=== PATIENT | male | born 1955 | race American Indian/Alaskan Native ===

== ENCOUNTER 2016-12-29 15:28 | Outpatient (CLI) | payer OTHER ==
--- NOTE | 2016-12-29 16:02 | XRay Report ---
Chest 2 views: History: Screening for tuberculosis. Findings: Normal cardiomediastinal silhouette. Trachea is midline. Tip of large bore right venous catheter in right atrium. No consolidation, pneumothorax or pleural effusion. Impression: No acute cardiopulmonary findings.
== END 2016-12-29 15:29 | disposition home or self-care (01) ==
LOC: XRAY 15:28
PROVIDERS: ATTEND Internal Medicine Nephrology
DX: Z11.1 Encounter for screening for respiratory tuberculosis (principal)
CPT/HCPCS: 71020

== ENCOUNTER 2017-01-07 08:09 | Day surgery (SDC) | payer OTHER ==
[~2017-01-07 08:09] MED LIST: ANCEF/STERILE WATER 2 GM/20 ML 2 GM/20 ML SYRINGE IV NR; DECADRON ONE; DIPRIVAN 10 MG/ML IV ONE; NACL 0.9% 1000 ML 1,000 ML IV SCH; PEPCID PO NR; SUBLIMAZE ONE; VERSED IV NR; XYLOCAINE MPF 2% ONE; ZOFRAN ONE
[2017-01-07] MEDS ORDERED: MARCAINE 0.25% INFILTRATI ONE ×3 (08:49→10:23)
[2017-01-07] MEDS ORDERED: PAPAVERINE ONE (08:49)
[2017-01-07] MEDS ORDERED: HEPARIN 10,000 UNITS/10 ML ONE (08:49)
[2017-01-07] MEDS ORDERED: NACL 0.9% 500 ML 500 ML ONE (08:50)
[2017-01-07] MEDS ORDERED: XYLOCAINE 1%/ EPI 1:100,000 INFILTRATI ONE (08:50)
[2017-01-07] MEDS ORDERED: SODIUM BICARBONATE ONE (08:50)
[2017-01-07] MEDS ORDERED: PROTAMINE SULFATE ONE (08:50)
--- NOTE | 2017-01-07 09:12 | Anesthesia Day of Surgery ---
Anesthesia Day of Surgery - Day of Surgery Patient Examined: Yes Patient H&P Reviewed: Yes Patient is NPO: Yes Beta Blockers: Yes (took 50 mg Atenolol in preop)
--- NOTE | 2017-01-07 09:14 | Anesthesia Consultation ---
Anesthesia Consult and Med Hx Date of service: 01/07/17 - Airway Anesthetic Teeth Evaluation: Edentulous ROM Head & Neck: Adequate Mental/Hyoid Distance: Adequate Mallampati Class: Class II Intubation Access Assessment: Probably Good - Pulmonary Exam CTA: Yes - Cardiac Exam Cardiac Exam: RRR - Pre-Operative Health Status ASA Pre-Surgery Classification: ASA3 Proposed Anesthetic Plan: General - Pulmonary Hx Smoking: No - Cardiovascular System Hx Hypertension: Yes - Endocrine Hx End Stage Renal Disease: Yes Hx Non-Insulin Dependent Diabetes: Yes - Additional Comments Anesthesia Medical History Comments: High Cholesterol
[2017-01-07] MEDS ORDERED: NACL 0.9% IR ONE (10:23)
[2017-01-07] MEDS ORDERED: HEPARIN 10,000 UNITS/10 ML 2,000 UNIT in NACL 0.9% 500 ML 500 ML IR ONE (10:23)
[2017-01-07] MEDS ORDERED: PAPAVERINE IV ONE (10:23)
[2017-01-07] MEDS ORDERED: ePHEDrine SULFATE ONE (10:33)
--- NOTE | 2017-01-07 11:52 | Operative Report ---
Operative Report Operative Report: Preoperative diagnosis: End-stage renal disease/dialysis dependent renal failure. Postop diagnosis: The same Procedure: Left radiocephalic arteriovenous fistula creation. Surgeon: Gerald Hare MD., RPVI Loader Technician: none Anesthesia: Local with IV sedation EBL: 30 mL IV fluids: 300 mL Findings: Adequate size left radial artery, adequate size left cephalic vein, palpable thrill in the vein after the anastomosis. Disposition: To recovery Indications end-stage renal disease. Procedure in details: Patient was brought to the operating room and laid on the operating room table in supine position. After LMA anesthesia was achieved patient left arm was prepped and draped in the usual sterile fashion. The longitudinal incision between the palpated radial artery and imaged cephalic vein made using #15 blade. Subcutaneous tissue was divided with Bovie electrocautery. The left cephalic vein was dissected free. The cephalic vein was disconnected from the distal cephalic vein and controlled was bulldog. It was heparinized with heparinized saline and dilated well. The left radial artery was then dissected and encircled with Vesseloops proximally and distally. Patient received 2000 units of intravenous heparin. After 3 minutes the artery was occluded with vessel clamps and arteriotomy was made using #11 blade and Sainz scissors. The distal end of the vein was spatulated using Sainz scissors. The anastomosis was created using a running 7-0 Prolene running suture using BV1 needle. Prior to completion the artery was flushed proximally and distally and good forward and back bleeding was seen. Then anastomosis was completed the clamps were removed. The hemostasis was excellent. The strong thrill was appreciated over the cephalic vein. Once it was ascertained that hemostasis was good the skin was closed using 3-0 vicryl and 4-0 monocryl sutures. Patient tolerated procedure well. He was awakened and taken to the recovery room. At the end of the case 1/4 percent Marcaine when infiltrated into the incision for postoperative pain control. All sponge and needle counts were correct.
--- NOTE | 2017-01-07 11:55 | Short Stay Summary ---
Short Stay Documentation - History H&P: obtained from office - Allergies and Medications Current Medications: Allergies No Known Allergies Allergy (Unverified 12/29/16 15:29) Home Medications Medication Instructions Recorded Confirmed Last Taken Type Atenolol [Tenormin] 50 mg PO DAILY 01/07/17 01/07/17 01/07/17 09:30 History Calcium Acetate 667 mg PO TID 01/07/17 01/07/17 01/06/17 17:00 History NIFEdipine [Nifedipine ER] 90 mg PO DAILY 01/07/17 01/07/17 01/06/17 09:00 History Sodium Bicarbonate [Sodium 10 gm PO DAILY 01/07/17 01/07/17 01/06/17 17:00 History Bicarbonate] glipiZIDE [Glucotrol] 5 mg PO DAILY 01/07/17 01/07/17 01/06/17 09:00 History Active Medications Famotidine (Pepcid) 20 mg PO PREOP NR Stop: 01/07/17 23:55 Last Admin: 01/07/17 09:30 Dose: 20 mg Cefazolin Sodium (Ancef/Sterile Water 2 Gm/20 Ml) 2 gm in 20 mls @ 80 mls/hr IV PREOP NR PRN Reason: Protocol Stop: 01/07/17 23:59 Sodium Chloride (Nacl 0.9% 1000 Ml) 1,000 mls @ 42 mls/hr IV DIRECT SANTA Last Admin: 01/07/17 09:30 Dose: 42 mls/hr Midazolam HCl (Versed) 2 mg IV PREOP NR Stop: 01/07/17 23:59 Last Admin: 01/07/17 09:30 Dose: 2 mg - Brief post op/procedure progress note Procedure: Preoperative diagnosis: End-stage renal disease/dialysis dependent renal failure. Postop diagnosis: The same Procedure: Left radiocephalic arteriovenous fistula creation. Surgeon: Gerald Hare MD., RPVI Block Machine Operator: none Anesthesia: Local with IV sedation EBL: 30 mL IV fluids: 300 mL Findings: Adequate size left radial artery, adequate size left cephalic vein, palpable thrill in the vein after the anastomosis. Disposition: To recovery - Disposition Condition at discharge: Good Disposition: DISCHARGED TO HOME OR SELFCARE Short Stay Discharge Plan Activity: advance as tolerated, other (all heavy lifting with left arm for 4-6 weeks) Diet: renal Wound: remove dressing (in 2 days and then keep it open to air. If mild oozing over with gauze) Additional Instructions: Follow-up with Dr. Hare in 2 weeks for suture removing and fistula evaluation. Follow up with: PACO BENDER MD [Primary Care Provider] - 7 Days
[2017-01-07 12:50] VITALS: BP 170/90
--- NOTE | 2017-01-07 16:31 | Post Anesthesia Evaluation ---
- Post Anesthesia Evaluation Patient Participated: Yes Airway Patent: Yes Stable Respiratory Function: Yes Nausea/Vomiting: No Temp > 96.8F: Yes Pain Manageable: Yes Adequeate Hydration: Yes Anesthesia Complications: No
== END 2017-01-07 13:38 | disposition home or self-care (01) ==
LOC: OR 08:09
PROVIDERS: ATTEND Surgery Vascular Surgery
DX: E11.22 Type 2 diabetes mellitus with diabetic chronic kidney disease (principal); I12.0 Hypertensive chronic kidney disease with stage 5 chronic kidney disease or end stage renal disease; N18.6 End stage renal disease; D64.9 Anemia, unspecified; N25.81 Secondary hyperparathyroidism of renal origin; Z79.899 Other long term (current) drug therapy; Z79.84 Long term (current) use of oral hypoglycemic drugs
CPT/HCPCS: 36415; 36821; 82962; 84132; J0690; J1644; J2250; J2405; J2440; J2704; J3010; J7030; J7040; J1100; J2720

== ENCOUNTER 2017-02-04 07:52 | Day surgery (SDC) | payer OTHER ==
[~2017-02-04 07:52] MED LIST changes: -DECADRON ONE; -DIPRIVAN 10 MG/ML IV ONE; -PEPCID PO NR; -SUBLIMAZE ONE; -VERSED IV NR; -XYLOCAINE MPF 2% ONE; -ZOFRAN ONE
[2017-02-04] MEDS ORDERED: MARCAINE 0.5% INFILTRATI ONE ×2 (08:52→12:22)
[2017-02-04] MEDS ORDERED: HEPARIN 10,000 UNITS/10 ML ONE ×2 (08:52→11:23)
[2017-02-04] MEDS ORDERED: PAPAVERINE ONE (08:53)
--- NOTE | 2017-02-04 09:08 | Anesthesia Day of Surgery ---
Anesthesia Day of Surgery - Day of Surgery Patient Examined: Yes Patient H&P Reviewed: Yes Patient is NPO: Yes Beta Blockers: Yes (took atenolol 02/04/17)
--- NOTE | 2017-02-04 09:08 | Anesthesia Consultation ---
Anesthesia Consult and Med Hx Date of service: 02/04/17 - Airway Anesthetic Teeth Evaluation: Edentulous ROM Head & Neck: Adequate Mental/Hyoid Distance: Adequate Mallampati Class: Class III Intubation Access Assessment: Probably Good - Pulmonary Exam CTA: Yes - Cardiac Exam Cardiac Exam: RRR - Pre-Operative Health Status ASA Pre-Surgery Classification: ASA3 Proposed Anesthetic Plan: General - Pulmonary Hx Smoking: No Hx Sleep Apnea: No - Cardiovascular System Hx Hypertension: Yes (FOR 5+ YRS) - Central Nervous System Hx Psychiatric Problems: No - Endocrine Hx End Stage Renal Disease: Yes (TTS) Hx Non-Insulin Dependent Diabetes: Yes - Hematic Hx Anemia: Yes - Other Systems Hx Cancer: No
[2017-02-04] MEDS ORDERED: ZOFRAN IV PRN (09:30)
[2017-02-04] MEDS ORDERED: NORCO 5/325 PO PRN (09:30)
[2017-02-04] MEDS ORDERED: DILAUDID IV PRN (09:30)
[2017-02-04] MEDS ORDERED: PEPCID IV NR (09:30)
--- NOTE | 2017-02-04 10:14 | Admit Criteria Form ---
<GETACHEWLATRICE ABUNDIO BLACK - Last Filed: 02/04/17 10:00> Admission Criteria Documentation: AMBULATORY SURGERY EXCEPTION CRITERIA Ambulatory Surgery Exception Criteria ( Place 'X' for any and all applicable criteria): Surgery or procedure performed on ambulatory basis may require inpatient stay for[A] ANY ONE of the following(1)(2)(3)(4)(5)(6)(7)(8)(9): [X] I. A preoperative situation, condition, or finding that warrants inpatient stay as indicated by ANY ONE of the following: [] a) Inpatient care needed because of severity of a disease or condition rather than the surgery (eg, severe cardiac or respiratory disease, severe infection) (15) (16 ) (17) (18) [] b) Emergent procedure (eg, angioplasty for acute ischemia)(19) [] c) Complex surgical approach or situation as indicated by ANY ONE of the following(3): [] i) Open approach needed instead of usual endoscopic, transcatheter, or other less invasive procedure [] ii) Difficult approach because of previous operation [] iii) Airway monitoring required after open neck procedures(20)(21) [] iv) Large mass requiring unusually extensive dissection [] v) Additional complicating feature requiring inpatient care (eg, drain management)(22(23): [X] d) Major surgery in a pt with high anesthetic risk as indicated by ANY ONE of the following (2)(3)(5)(7)(8): [X] i) ASA risk class III or higher (severe systemic disease impairing function) [D] [] ii) Advanced age (eg, older than 85 years)(14)(24) [] iii) Symptomatic heart failure(25) [] iv) Symptomatic asthma or COPD(8)(21) [] v) Morbid obesity with hemodynamic or respiratory problems(20)( 21)(26)(27) [] vi) Obstructive sleep apnea(20)(21) [] vii) Former premature infants who are younger than 60 weeks [] viii) High risk for severe postoperative abnormalities (eg, severe postoperative hypocalcemia after parathyroidectomy for severe hyperparathyroidism)(27)( 28) [] ix) Unstable angina(25) [] e) Drug-related risk requiring inpatient stay as indicated by ANY ONE of the following(5)(10)(14)(32)(33) [] i) Procedure requires discontinuing drugs or other therapy (eg , antiarrhythmic medication, antiseizure medication), which necessitates inpatient observation or treatment.(18)(31) [] ii) Major surgery and high risk drug use as indicated by ANY ONE of the following: [] 1) Active abuse of cocaine or similar drug [] 2) Monoamine oxidase inhibitor use [] 3) Other drug identified as posing risk [] f) Inadequate outpatient care situation as indicated by ANY ONE of the following(5)(10)(14)(32)(33) [] i) Patient lives remote from medical facility and procedure has urgent complication potential, and temporary nearby residence cannot be arranged [] ii) Patient will have postprocedure incapacitation and inadequate assistance at home, or alternative level of care cannot be arranged. [] iii) Patient will have long general anesthesia or procedure side effect resolution time, and competent person to stay with patient on first postoperative night at home or alternative level of care cannot be arranged. []iv) Other inadequate outpatient situation that cannot be handled by other means [] II. A perioperative event, condition, or finding that warrants inpatient stay as indicated by ANY ONE of the following (1)(2)(3): [] a) Inadequate physiologic recovery: cardiovascular, respiratory, or hemodynamic status not normal or near preoperative baseline(18) [] b) Hemodynamic instability [] c) Patient not alert with near normal or baseline mental status [] d) Temperature not normal or as expected and not appropriate for outpatient treatment of condition [] e) Ambulatory or appropriate activity level status not yet achieved post procedure [E](34)(35)(36) [] f) Operative site not appropriate (eg, unexpected or excessive drainage or bleeding) [] g) Postoperative effects not resolved or adequately managed (eg, significant pain or vomiting not appropriate for outpatient or next level of care)(10)(12) [] h) Complicating features requiring inpatient care as indicated by ANY ONE of the following(37): [] i) Severe complications of procedure (eg, bowel injury, airway compromise, vascular injury,severe hemorrhage) [] ii) Extensive (eg, dissection far beyond usual scope of procedure ) or prolonged (eg, 120 minutes beyond usual) surgery needed requiring inpatient postoperative care [] iii) Conversion to an open or complex procedure that requires inpatient care (eg, open vs laparoscopic cholecystectomy, abdominal vs vaginal hysterectomy)(38) [] iv) Comorbid condition or test result identified during or post procedure that requires inpatient care (7) [] v) Malignant hyperthermia(30) [] vi) Other complicating feature requiring inpatient care(22)(23) Inpatient stay may be needed until ALL of the following are present (1)(2)(3)(4) (5)(6)(10)(14)(33)(40): []a) Physiologic recovery: cardiovascular, respiratory, and hemodynamic status normal or near preoperative baseline []b) Hemodynamic stability []c) Patient alert, with near normal or baseline mental status []d) Temperature appropriate: patient afebrile or temperature appropriate for outpt treatment of condition []e) Activity level appropriate: ambulatory or appropriate activity level post procedure []f) Operative site appropriate as indicated by ALL of the following: []i) Site dry or with expected drainage []ii) Any blood noted is as expected for procedure. []g) Postoperative effects resolved or managed as indicated by ALL of the following: []i) Pain management appropriate for outpatient (or next level of) care(10) []ii) Minimal nausea and vomiting: if present, successfully treated with oral medication(12) []iii) Headache, dizziness, or drowsiness (if present) are mild. []h) Voiding status acceptable as indicated by ANY ONE of the following: []i) Voiding spontaneously []ii) No voiding but instructions given for follow-up in 6 to 8 hours []iii) Urinary catheter in place, and instructions given for follow-up []i) Complicating features requiring inpatient care manageable at a lower level of care(37) []j) Comorbid conditions manageable at a lower level of care(37) The original [facility] content created by [employer] has been revised. The portions of the content which have been revised are identified through the use of italic text or in bold, and [facility] [employer] has neither reviewed nor approved the modified material. All other unmodified content is copyright [facility] [employer]. Please see references footnoted in the original [facility] [employer] edition 2016 Admission Criteria Met: Yes <TJ MONIQUE - Last Filed: 02/06/17 07:59> Admission Criteria Met: No (patient was not admitted)
[2017-02-04] MEDS ORDERED: DILAUDID ONE (10:29)
[2017-02-04] MEDS ORDERED: DIPRIVAN 10 MG/ML IV ONE (10:29)
[2017-02-04] MEDS ORDERED: XYLOCAINE MPF 2% ONE (10:29)
[2017-02-04] MEDS ORDERED: NACL 0.9% 1000 ML IR ONE (11:00)
[2017-02-04] MEDS ORDERED: DECADRON ONE (11:23)
[2017-02-04] MEDS ORDERED: ZOFRAN ONE (11:23)
[2017-02-04] MEDS ORDERED: ePHEDrine SULFATE ONE (11:35)
[2017-02-04] MEDS ORDERED: HEPARIN 10,000 UNITS/10 ML 1,000 UNIT in NACL 0.9% 250ML 250 ML IR ONE (12:00)
--- NOTE | 2017-02-04 13:15 | Operative Report ---
Operative Report Operative Report: Preoperative diagnosis: End-stage renal disease/dialysis dependent renal failure. Postop diagnosis: The same Procedure: Left brachiocephalic arteriovenous fistula creation. Surgeon: Gerald Hare MD., RPVI Home Economics Expert: none Anesthesia: Gen. LMA EBL: 10 mL IV fluids: 100 mL Findings: Adequate size left brachial artery, adequate size left cephalic vein, excellent thrill in the vein after the anastomosis. Disposition: To recovery Indications end-stage renal disease. Procedure in details: Patient was brought to the operating room and laid on the operating room table in supine position. After LMA anesthesia was achieved patient left arm was prepped and draped in the usual sterile fashion. The transverse incision below antecubital fossa was made using #15 blade. Subcutaneous tissue was divided with Bovie electrocautery. The left cephalic and antecubital vein was dissected free. The antecubital vein was disconnected from the distal cephalic vein and controlled was bulldog. It was heparinized with heparinized saline and dilated well. The left brachial artery was then dissected and encircled with Vessel loops proximally and distally. Patient received 3000 units of intravenous heparin. After 3 minutes the artery was occluded with vessel clamps and arteriotomy was made using #11 blade and Sainz scissors. The distal end of the vein was spatulated using Sainz scissors. The anastomosis was created using a running 6-0 Prolene running suture using BV1 needle. Prior to completion the artery was flushed proximally and distally and good forward and back bleeding was seen. Then anastomosis was completed the clamps were removed. The hemostasis was excellent. The strong thrill was appreciated over the cephalic vein. Once it was ascertained that hemostasis was good the skin was closed using 3-0 vicryl and 4-0 monocryl sutures. Patient tolerated procedure well. He was awakened and taken to the recovery room. At the end of the case 1/4 percent Marcaine when infiltrated into the incision for postoperative pain control. All sponge and needle counts were correct.
--- NOTE | 2017-02-04 13:17 | Short Stay Summary ---
Short Stay Documentation - History H&P: obtained from office - Allergies and Medications Current Medications: Allergies No Known Allergies Allergy (Verified 02/04/17 08:30) Home Medications Medication Instructions Recorded Confirmed Last Taken Type Atenolol [Tenormin] 50 mg PO DAILY 01/07/17 02/04/17 02/04/17 History Calcium Acetate 667 mg PO TID 01/07/17 02/04/17 02/03/17 History NIFEdipine [Nifedipine ER] 90 mg PO DAILY 01/07/17 02/04/17 02/04/17 History Sodium Bicarbonate [Sodium 10 gm PO DAILY 01/07/17 02/04/17 02/03/17 History Bicarbonate] glipiZIDE [Glucotrol] 5 mg PO DAILY 01/07/17 02/04/17 02/03/17 History Active Medications Acetaminophen/Hydrocodone Bitart ([place] 5/325) 2 each PO ONCE PRN PRN Reason: Pain, Moderate (4-6) Stop: 02/04/17 19:00 Famotidine (Pepcid) 20 mg IV PREOP NR Stop: 02/04/17 19:00 Last Admin: 02/04/17 09:20 Dose: 20 mg Hydromorphone HCl (Dilaudid) 0.5 mg IV Q10MIN PRN PRN Reason: Pain , Severe (7-10) Stop: 02/04/17 14:00 Cefazolin Sodium (Ancef/Sterile Water 2 Gm/20 Ml) 2 gm in 20 mls @ 80 mls/hr IV PREOP NR PRN Reason: Protocol Stop: 02/04/17 23:59 Sodium Chloride (Nacl 0.9% 1000 Ml) 1,000 mls @ 42 mls/hr IV DIRECT SANTA Last Admin: 02/04/17 08:53 Dose: 42 mls/hr Ondansetron HCl (Zofran) 4 mg IV ONCE PRN PRN Reason: Nausea And Vomiting Stop: 02/04/17 18:00 - Brief post op/procedure progress note Procedure: Preoperative diagnosis: End-stage renal disease/dialysis dependent renal failure. Postop diagnosis: The same Procedure: Left brachiocephalic arteriovenous fistula creation. Surgeon: Gerald Hare MD., RPVI Hog Feeder: none Anesthesia: Gen. LMA EBL: 10 mL IV fluids: 100 mL Findings: Adequate size left brachial artery, adequate size left cephalic vein, excellent thrill in the vein after the anastomosis. Disposition: To recovery - Disposition Condition at discharge: Good Disposition: DISCHARGED TO HOME OR SELFCARE Short Stay Discharge Plan Activity: advance as tolerated, other (no heavy lifting for 6 weeks with left arm) Diet: renal Wound: open to air Additional Instructions: Follow-up with Dr. Hare in 1-2 weeks Follow up with: PACO BENDER MD [Primary Care Provider] - 7 Days
--- NOTE | 2017-02-04 14:00 | Post Anesthesia Evaluation ---
- Post Anesthesia Evaluation Patient Participated: Yes Airway Patent: Yes Stable Respiratory Function: Yes Nausea/Vomiting: No Temp > 96.8F: Yes Pain Manageable: Yes Adequeate Hydration: Yes Anesthesia Complications: No Block Receding Appropriately: Not Applicable Patient on Ventilator: No
--- NOTE | 2017-02-04 16:26 | Operative Report ---
Operative Report Operative Report: Date of procedure: 02/04/2017 Pre-operative diagnosis: Poor inflow in the right radial basilic AV fistula resulting in poor dialysis. Post-operative diagnosis: The same Procedure name(s): Revision of the right radial basilic fistula with brachiobasilic bypass using a 5 mm bovine graft. Surgeon: Gerald Hare MD, RPVI Investment Banking Associate: None Anesthesia: LMA/local Findings . Very small calcified brachial artery. Patent interposition bypass graft in the radial basilic fistula. Good thrill in the bypass graft. Good thrill in the fistula. Specimens: None EBL: 50 mL IV fluids: 750 mL Urine output: None Disposition: The recovery Indications: Poor functioning right brachiobasilic fistula with history of interposition bypass graft and multiple angioplasties. It was determined and the patient has poor inflow. Procedure: Patient was brought to the operating room laid on the table in supine position. After adequate sedation was achieved patient are was prepped and draped in usual sterile fashion. The incision was made through the previously made incision right above the antecubital fossa. The subcutaneous tissue was dissected with Bovie electrocautery. The brachial artery was found to be heavily scarred. It was dissected very carefully. The artery was found to be on the smaller caliber and heavily calcified. Through the same incision the skin was elevated over the fistula. In this area we encountered a bypass graft. It was also heavily scored. It was carefully dissected and encircled with vessel loop. Patient received 3000 units of intravenous heparin. The interposition bypass graft was occluded proximally and distally using vascular clamp. The arteriotomy on the graft was made using #11 blade and Sainz scissors. The 5 mm bovine graft was spatulated and distal anastomosis was created using 5-0 Prolene stitch and C1 needle. There was an excellent backbleeding from the graft. The graft was irrigated the clamp was applied right at the anastomosis. There was no bleeding seen. The arteriotomy was made on the brachial artery after artery was occluded with vascular clamps using #11 blade and Sainz scissors. Care was taken not to make arteriotomy to be to avoid potential steal syndrome. The graft was cut straight and anastomosis was created using 6-0 running Prolene stitch. Prior to completion of the anastomosis back bleeding was performed in the was good. Then anastomosis was completed. The clamps were removed. There was a good flow in the graft. No bleeding was seen. There was pulse in the brachial artery distal to the anastomosis. The hemostasis was examined and it was found to be satisfactorily. Because the patient was so thin the skin was closed using interrupted vertical mattress 3-0 nylon stitches. Patient tolerated procedure well. At the end of the case all instrument sponge and needle counts were correct.
--- NOTE | 2017-02-04 16:31 | Short Stay Summary ---
Short Stay Documentation - History H&P: obtained from office - Allergies and Medications Current Medications: Allergies No Known Allergies Allergy (Verified 02/04/17 08:30) Home Medications Medication Instructions Recorded Confirmed Last Taken Type Atenolol [Tenormin] 50 mg PO DAILY 01/07/17 02/04/17 02/04/17 History Calcium Acetate 667 mg PO TID 01/07/17 02/04/17 02/03/17 History NIFEdipine [Nifedipine ER] 90 mg PO DAILY 01/07/17 02/04/17 02/04/17 History Sodium Bicarbonate [Sodium 10 gm PO DAILY 01/07/17 02/04/17 02/03/17 History Bicarbonate] glipiZIDE [Glucotrol] 5 mg PO DAILY 01/07/17 02/04/17 02/03/17 History oxyCODONE /ACETAMINOPHEN [Percocet 1 - 2 tab PO Q4HR #40 tab 02/04/17 Unknown Rx 5/325] Active Medications Acetaminophen/Hydrocodone Bitart ([place] 5/325) 2 each PO ONCE PRN PRN Reason: Pain, Moderate (4-6) Stop: 02/04/17 19:00 Famotidine (Pepcid) 20 mg IV PREOP NR Stop: 02/04/17 19:00 Last Admin: 02/04/17 09:20 Dose: 20 mg Cefazolin Sodium (Ancef/Sterile Water 2 Gm/20 Ml) 2 gm in 20 mls @ 80 mls/hr IV PREOP NR PRN Reason: Protocol Stop: 02/04/17 23:59 Sodium Chloride (Nacl 0.9% 1000 Ml) 1,000 mls @ 42 mls/hr IV DIRECT SANTA Last Admin: 02/04/17 08:53 Dose: 42 mls/hr Ondansetron HCl (Zofran) 4 mg IV ONCE PRN PRN Reason: Nausea And Vomiting Stop: 02/04/17 18:00 - Brief post op/procedure progress note Procedure: Pre-operative diagnosis: Poor inflow in the right radial basilic AV fistula resulting in poor dialysis. Post-operative diagnosis: The same Procedure name(s): Revision of the right radial basilic fistula with brachiobasilic bypass using a 5 mm bovine graft. Surgeon: Gerald Hare MD, RPVI Supervisor Electron Tube Processing: None Anesthesia: LMA/local Findings . Very small calcified brachial artery. Patent interposition bypass graft in the radial basilic fistula. Good thrill in the bypass graft. Good thrill in the fistula. Specimens: None EBL: 50 mL IV fluids: 750 mL Urine output: None Disposition: The recovery Short Stay Discharge Plan Activity: advance as tolerated, other (no heavy lifting with right arm for 6 weeks.) Weight Bearing Status: Full Weight Bearing Diet: renal Wound: remove dressing (in 2 days) Additional Instructions: ACTIVITY ADVANCE TOLERATED NO HEAVY LIFTING FOR 6 WEEKS WITH LEFT ARM DIET RENAL WOUND OPEN TO AIR CALL DR HARE OFFICE FOR APPOINTMENT TIME Follow- up with Dr. Hare in 1-2 weeks Follow up with: PACO BENDER MD [Primary Care Provider] - 7 Days Forms: Outpatient Surgery DC Inst. Prescriptions: oxyCODONE /ACETAMINOPHEN [Percocet 5/325] 1 - 2 tab PO Q4HR #40 tab
--- NOTE | 2017-02-04 16:49 | Event Note ---
Date: 02/04/17 The second set of notes do not belong to this patient. They were placed by mistake. The earlier set of notes is the correct one.
[2017-02-04 17:59] VITALS: BP 136/88
== END 2017-02-04 16:15 | disposition home or self-care (01) ==
LOC: OR 07:52
PROVIDERS: ATTEND Surgery Vascular Surgery
DX: T82.590A Other mechanical complication of surgically created arteriovenous fistula, initial encounter (principal); E11.22 Type 2 diabetes mellitus with diabetic chronic kidney disease; I12.0 Hypertensive chronic kidney disease with stage 5 chronic kidney disease or end stage renal disease; N18.6 End stage renal disease; D64.9 Anemia, unspecified; N25.81 Secondary hyperparathyroidism of renal origin; Z98.890 Other specified postprocedural states; Z79.899 Other long term (current) drug therapy; Z79.84 Long term (current) use of oral hypoglycemic drugs; Y83.2 Surgical operation with anastomosis, bypass or graft as the cause of abnormal reaction of the patient, or of later complication, without mention of misadventure at the time of the procedure
CPT/HCPCS: 36415; 36832; 82962; 84132; C1768; J0690; J1100; J1170; J1644; J2405; J2704; J7030; J7050; J2440

== ENCOUNTER 2019-07-24 10:07 | Inpatient (IN) | payer OTHER, MEDICARE ==
[2019-07-24] MEDS ORDERED: CEFEPIME/NS 2 GM/100 ML 2 GM/100 ML BAG IV ONE (11:27)
[2019-07-24] MEDS: CEFEPIME/NS 2 GM/100 ML 2 GM/100 ML BAG IV SCH ×2 (11:29→12:45)
--- NOTE | 2019-07-24 11:44 | XRay Report ---
CHEST 1 VIEW 07/24/2019 11:34 AM INDICATION / CLINICAL INFORMATION: Dyspnea hypoxia. COMPARISON: Chest x-ray 04/04/2019 FINDINGS: SUPPORT DEVICES: None. HEART / MEDIASTINUM: No significant abnormality. LUNGS / PLEURA: Moderate symmetric central bilateral perihilar opacities suggestive for early alveola r pulmonary edema versus less likely pneumonia. No pneumothorax. ADDITIONAL FINDINGS: No significant additional findings. IMPRESSION: 1. Probable acute early bilateral alveolar central pulmonary edema Signer Name: Robbi Rodriguez MD Signed: 07/24/2019 11:39 AM Workstation Name: [id number]
[2019-07-24 11:51] LABS: Basophils % (Auto) 0.2 % (0.0-1.8); Eosinophils # (Auto) 0.2 K/mm3 (0.0-0.4); Eosinophils % (Auto) 2.9 % (0.0-4.3); Hematocrit 26.5 % (35.5-45.6); Lymphocytes # (Auto) 0.4 K/mm3 (1.2-5.4); Lymphocytes % (Auto) 5.5 % (13.4-35.0); Mean Corpuscular HGB Conc 34 % (32-34); Mean Corpuscular Volume 85 fl (84-94); Monocytes # (Auto) 0.6 K/mm3 (0.0-0.8); Monocytes % (Auto) 7.5 % (0.0-7.3); Platelet Count 208 K/mm3 (140-440); Red Blood Count 3.14 M/mm3 (3.65-5.03); Red Cell Distribution Width 16.5 % (13.2-15.2)
[2019-07-24] MEDS ORDERED: VANCOMYCIN PHARMACY TO DOSE IV SCH (12:00)
[2019-07-24] MEDS ORDERED: VANCOMYCIN 1,750 MG in SODIUM CHLORIDE 0.9% 500 ML 500 ML IV ONE (12:00)
[2019-07-24 12:13] LABS: Albumin 4.1 g/dL (3.9-5)
[2019-07-24 12:28] LABS: Chol/HDL Ratio 3.02 %
--- NOTE | 2019-07-24 14:59 | Emergency Department Report ---
ED Shortness of Breath HPI - General Chief Complaint: Dyspnea/Respdistress Stated Complaint: SOB Time Seen by Provider: 07/24/19 11:14 Source: patient, EMS Mode of arrival: Stretcher Limitations: No Limitations - History of Present Illness Initial Comments: 64-year-old obese Afro-Portuguese male admitted history of diabetes, hypertension, end-stage renal disease requiring dialysis on Thursday and Thursday presents to the emergency department complaining of sudden onset of shortness of breath despite his dialysis yesterday. Patient states he was final diagnosis 4 AM this morning he had sudden onset of shortness of breath when while lying go n. Symptoms are improving or stands significantly worsens in position he reports no cough, or congestion or chest pain. Reports no fever, chills, sweats no nausea, no vomiting. No hemoptysis, hematemesis nor hematochezia and also denies chest trauma is no change in his medications, no foreign travel or car trips no swelling or pain to his lower extremities MD Complaint: shortness of breath -: Sudden Severity: mild Consistency: constant Improves With: upright position Worsens With: lying flat Treatments Prior to Arrival: none - Related Data Home Oxygen Therapy: No Home Medications Medication Instructions Recorded Confirmed Last Taken Atenolol [Tenormin] 50 mg PO DAILY 01/07/17 02/04/17 02/04/17 Calcium Acetate 667 mg PO TID 01/07/17 02/04/17 02/03/17 NIFEdipine [Nifedipine ER] 90 mg PO DAILY 01/07/17 02/04/17 02/04/17 Sodium Bicarbonate 10 gm PO DAILY 01/07/17 02/04/17 02/03/17 glipiZIDE [Glucotrol] 5 mg PO DAILY 01/07/17 02/04/17 02/03/17 Previous Rx's Medication Instructions Recorded Last Taken Type oxyCODONE /ACETAMINOPHEN [Percocet 1 - 2 tab PO Q4HR #40 tab 02/04/17 Unknown Rx 5/325] Allergies Allergy/AdvReac Type Severity Reaction Status Date / Time No Known Allergies Allergy Verified 02/04/17 08:30 ED Review of Systems ROS: Stated complaint: SOB Other details as noted in HPI Comment: All other systems reviewed and negative ED Past Medical Hx - Past Medical History Hx Hypertension: Yes (FOR 5+ YRS) Hx Diabetes: Yes (FOR 4 YRS) Hx HIV: No Additional medical history: dialysis T/T/S. GERARDO IN RT EAR - Surgical History Past Surgical History?: No - Social History Smoking Status: Never Smoker Substance Use Type: None - Medications Home Medications: Home Medications Medication Instructions Recorded Confirmed Last Taken Type Atenolol [Tenormin] 50 mg PO DAILY 01/07/17 02/04/17 02/04/17 History Calcium Acetate 667 mg PO TID 01/07/17 02/04/17 02/03/17 History NIFEdipine [Nifedipine ER] 90 mg PO DAILY 01/07/17 02/04/17 02/04/17 History Sodium Bicarbonate 10 gm PO DAILY 01/07/17 02/04/17 02/03/17 History glipiZIDE [Glucotrol] 5 mg PO DAILY 01/07/17 02/04/17 02/03/17 History oxyCODONE /ACETAMINOPHEN [Percocet 1 - 2 tab PO Q4HR #40 tab 02/04/17 Unknown Rx 5/325] ED Physical Exam - General Limitations: No Limitations General appearance: alert, in no apparent distress - Head Head exam: Present: atraumatic, normocephalic - Eye Eye exam: Present: normal appearance - ENT ENT exam: Present: mucous membranes moist - Neck Neck exam: Present: normal inspection, other (NoJVD). Absent: tenderness, lymphadenopathy - Respiratory Respiratory exam: Present: normal lung sounds bilaterally, rales. Absent: respiratory distress - Cardiovascular Cardiovascular Exam: Present: regular rate, normal rhythm. Absent: systolic murmur, diastolic murmur, rubs, gallop - GI/Abdominal GI/Abdominal exam: Present: soft, normal bowel sounds - Rectal Rectal exam: Present: deferred - Extremities Exam Extremities exam: Present: normal inspection. Absent: pedal edema, joint swelling, calf tenderness - Back Exam Back exam: Present: normal inspection, full ROM - Neurological Exam Neurological exam: Present: alert, oriented X3, CN II-XII intact, normal gait - Psychiatric Psychiatric exam: Present: normal affect, normal mood - Skin Skin exam: Present: warm, dry, intact, normal color. Absent: rash ED Course Vital Signs 07/24/19 10:42 Temperature 100.7 F H Pulse Rate 116 H Respiratory 24 Rate Blood Pressure 195/89 Blood Pressure 195/89 [Right] O2 Sat by Pulse 97 Oximetry - Consultations Consultation #1: 07/24/19 15:[address] Valdovinos of nephrology with plans to arrange dialysis fluid overload. Consultation #2: 07/24/19 15:[address] Junior hospitalist plan is to admit Mr. 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 COMPARISON: Chest x-ray 04/04/2019 FINDINGS: SUPPORT DEVICES: None. HEART / MEDIASTINUM: No significant abnormality. LUNGS / PLEURA: Moderate symmetric central bilateral perihilar opacities suggestive for early alveolar pulmonary edema versus less likely pneumonia. No pneumothorax. ADDITIONAL FINDINGS: No significant additional findings. IMPRESSION: 1. Probable acute early bilateral alveolar central pulmonary edema Signer Name: Robbi Rodriguez MD Signed: 07/24/2019 11:39 AM Workstation Name: [id number] Transcribed By: TL Dictated By: Robbi Rodriguez MD Electronically Authenticated By: Robbi Rodriguez MD Signed Date/Time: 07/24/19 1139 DD/ TD/TT: - Medical Decision Making 64-year-old -Portuguese [place] history of end-stage renal disease with history of diabetes and hypertension. His chest x-ray shows bilateral pleural effusions and his BNP is 24,000 suggestive of acute onset of of CHF with fluid overload. I consulted with with nephrology to arrange dialysis today and also to consult with hospitalist for admission. Critical care attestation.: If time is entered above; I have spent that time in minutes in the direct care of this critically ill patient, excluding procedure time. ED Disposition Clinical Impression: Dyspnea, CHF (congestive heart failure) Disposition: OP ADMIT IP TO THIS HOSP Is pt being admited?: Yes Does the pt Need Aspirin: No Condition: Stable
[2019-07-24] MEDS ORDERED: SODIUM CHLORIDE 0.9% 100 ML IV PRN ×2 (15:26→15:43)
--- NOTE | 2019-07-24 15:30 | Event Note ---
Face to Face: For this encounter I have reviewed the PA/BELL CLEANER documentation, treatment plan, medical decision making, and I had face to face time with this patient. I evaluated Mr. Tolbert. He presents with acute respiratory failure with low-grade fever and hypoxia oxygen saturation percent. Differential diagnosis includes new-onset CHF, hospital-acquired pneumonia, pulmonary edema due to volume overload as a result of ESRD. He will need urgent dialysis and further evaluation for other potential etiologies.
[2019-07-24 17:15] LABS: Hepatitis B Surface Antigen Non-Reactive (Negative); Hepatitis C Virus Antibody Non-Reactive (NonReactive)
[2019-07-24] MEDS ORDERED: ACETAMINOPHEN 325 MG TAB PO ONE (17:50)
[2019-07-24] MEDS ORDERED: ACETAMINOPHEN 325 MG TAB ONE (18:30)
[2019-07-24] MEDS ORDERED: SODIUM BICARBONATE 650 MG TAB PO SCH (20:00)
[2019-07-24] MEDS ORDERED: NON-FORMULARY EACH (Calcium Acetate 667 MG) PO SCH (20:00)
[2019-07-24] MEDS ORDERED: SODIUM CHLORIDE*PRIMING MACHINE ONLY FOR DIALYSIS MC ONE (20:20)
[2019-07-24] MEDS: CALCIUM ACETATE 667 MG CAP PO SCH (22:46)
[2019-07-24] MEDS: atenoloL 25 MG TAB PO SCH (22:46)
[2019-07-24] MEDS: NIFEdipine XL 90 MG TAB PO SCH (22:46)
[2019-07-24] MEDS: glipiZIDE 5 MG TAB PO SCH (22:47)
[2019-07-24] MEDS: ACETAMINOPHEN 325 MG TAB PO PRN (22:49)
--- NOTE | 2019-07-25 06:42 | History and Physical Report ---
History of Present Illness Date of examination: 07/24/19 Date of admission: 07/24/19 16:50 Chief complaint: SOB since 4 am History of present illness: 64-year-old obese Afro-[place]ander male with history of diabetes, hypertension, end-stage renal disease requiring dialysis on Thursday and Thursday presents to the emergency department complaining of sudden onset of shortness of breath despite his dialysis yesterday. Patient states he was fine at 4 AM this morning and he had sudden onset of shortness of breath while lying down. No cough, or congestion or chest pain. Reports no fever, chills, sweats no nausea, no vomiting. No hemoptysis, hematemesis nor hematochezia and also denies chest trauma is no change in his medications, no foreign travel or car trips no swelling or pain to his lower extremities Past Medical History Hypertension: Yes (FOR 5+ YRS) Diabetes: Yes (FOR 4 YRS) Additional medical history: dialysis T/T/S. GERARDO IN RT EAR Surgical History Past Surgical History?: No Social History Smoking Status: Never Smoker Substance Use Type: None Family History Htn Medications Home Medications: Home Medications Medication Instructions Recorded Confirmed Last Taken Type Atenolol [Tenormin] 50 mg PO DAILY 01/07/17 02/04/17 02/04/17 History Calcium Acetate 667 mg PO TID 01/07/17 02/04/17 02/03/17 History NIFEdipine [Nifedipine ER] 90 mg PO DAILY 01/07/17 02/04/17 02/04/17 History Sodium Bicarbonate 10 gm PO DAILY 01/07/17 02/04/17 02/03/17 History glipiZIDE [Glucotrol] 5 mg PO DAILY 01/07/17 02/04/17 02/03/17 History oxyCODONE /ACETAMINOPHEN [Percocet 1 - 2 tab PO Q4HR #40 tab 02/04/17 Unknown Rx 5/325] Review of Systems ROS: Stated complaint: SOB Other details as noted in HPI Comment: All other systems reviewed and negative Medications and Allergies Allergies Allergy/AdvReac Type Severity Reaction Status Date / Time No Known Allergies Allergy Verified 02/04/17 08:30 Home Medications Medication Instructions Recorded Confirmed Last Taken Type Atenolol [Tenormin] 50 mg PO DAILY 01/07/17 07/24/19 02/04/17 History Calcium Acetate 667 mg PO TID 01/07/17 07/24/19 02/03/17 History NIFEdipine [Nifedipine ER] 90 mg PO DAILY 01/07/17 07/24/19 02/04/17 History Sodium Bicarbonate 10 gm PO DAILY 01/07/17 07/24/19 02/03/17 History glipiZIDE [Glucotrol] 5 mg PO DAILY 01/07/17 07/24/19 02/03/17 History oxyCODONE /ACETAMINOPHEN [Percocet 1 - 2 tab PO Q4HR #40 tab 02/04/17 07/24/19 Unknown Rx 5/325] Active Meds: Active Medications Acetaminophen (Tylenol) 650 mg PO Q4H PRN PRN Reason: Pain, Mild (1-3) Last Admin: 07/24/19 22:49 Dose: 650 mg Documented by: Atenolol (Tenormin) 50 mg PO QDAY [facility] Last Admin: 07/24/19 22:46 Dose: 50 mg Documented by: Calcium Acetate (Phoslo) 667 mg PO TIDWM [facility] Last Admin: 07/24/19 22:46 Dose: 667 mg Documented by: Glipizide (Glucotrol) 5 mg PO DAILY [facility] Last Admin: 07/24/19 22:47 Dose: Not Given Documented by: Sodium Chloride (Nacl 0.9%) 100 mls @ 999 mls/hr IV ARVIND PRN PRN Reason: Hypotension Cefepime HCl (Cefepime/Ns 1 Gm/100 Ml) 1 gm in 100 mls @ 200 mls/hr IV Q24H [facility] Nifedipine (Procardia Xl) 90 mg PO QDAY [facility] Last Admin: 07/24/19 22:46 Dose: 90 mg Documented by: Sodium Bicarbonate (Sodium Bicarbonate) 650 mg PO QDAY [facility] Exam - Constitutional Vitals: Temp Pulse Resp BP Pulse Ox 99.7 F H 83 20 118/62 94 07/25/19 03:36 07/25/19 03:34 07/25/19 03:34 07/25/19 03:34 07/25/19 03:34 General appearance: Present: mild distress, well-nourished - EENT Eyes: Present: PERRL ENT: hearing intact, clear oral mucosa - Neck Neck: Present: supple, normal ROM - Respiratory Respiratory effort: normal Respiratory: bilateral: CTA - Cardiovascular Heart rate: 78 Rhythm: regular Heart Sounds: Present: S1 & S2. Absent: rub, click - Extremities Extremities: pulses symmetrical, No edema Peripheral Pulses: within normal limits - Abdominal General gastrointestinal: Present: soft, non-tender, non-distended, normal bowel sounds Male genitourinary: Present: normal - Rectal Rectal Exam: deferred - Integumentary Integumentary: Present: clear, warm, dry - Musculoskeletal Musculoskeletal: gait normal, strength equal bilaterally - Psychiatric Psychiatric: appropriate mood/affect, intact judgment & insight - Neurologic Neurologic: CNII-XII intact, moves all extremities - Allied Health Allied health notes reviewed: nursing, case management Results - Labs CBC & Chem 7: 07/24/19 11:12 07/24/19 11:12 Labs: Laboratory Last Values WBC 8.0 K/mm3 (4.5-11.0) 07/24/19 11:12 RBC 3.14 M/mm3 (3.65-5.03) L 07/24/19 11:12 Hgb 9.0 gm/dl (11.8-15.2) L 07/24/19 11:12 Hct 26.5 % (35.5-45.6) L 07/24/19 11:12 MCV 85 fl (84-94) 07/24/19 11:12 MCH 29 pg (28-32) 07/24/19 11:12 MCHC 34 % (32-34) 07/24/19 11:12 RDW 16.5 % (13.2-15.2) H 07/24/19 11:12 Plt Count 208 K/mm3 (140-440) 07/24/19 11:12 Lymph % (Auto) 5.5 % (13.4-35.0) L 07/24/19 11:12 [place] % (Auto) 7.5 % (0.0-7.3) H 07/24/19 11:12 Eos % (Auto) 2.9 % (0.0-4.3) 07/24/19 11:12 Baso % (Auto) 0.2 % (0.0-1.8) 07/24/19 11:12 Lymph # 0.4 K/mm3 (1.2-5.4) L 07/24/19 11:12 [place] # 0.6 K/mm3 (0.0-0.8) 07/24/19 11:12 Eos # 0.2 K/mm3 (0.0-0.4) 07/24/19 11:12 Baso # 0.0 K/mm3 (0.0-0.1) 07/24/19 11:12 Seg Neutrophils % 83.9 % (40.0-70.0) H 07/24/19 11:12 Seg Neutrophils # 6.7 K/mm3 (1.8-7.7) 07/24/19 11:12 Sodium 140 mmol/L (137-145) 07/24/19 11:12 Potassium 3.9 mmol/L (3.6-5.0) 07/24/19 11:12 Chloride 94.1 mmol/L (98-107) L 07/24/19 11:12 Carbon Dioxide 26 mmol/L (22-30) 07/24/19 11:12 Anion Gap 24 mmol/L 07/24/19 11:12 BUN 31 mg/dL (9-20) H 07/24/19 11:12 Creatinine 8.6 mg/dL (0.8-1.5) H 07/24/19 11:12 Estimated GFR 8 ml/min 07/24/19 11:12 BUN/Creatinine Ratio 4 % 07/24/19 11:12 Glucose 118 mg/dL (75-100) H 07/24/19 11:12 POC Glucose 85 (70-105) 07/24/19 22:40 Lactic Acid 0.60 mmol/L (0.7-2.0) L 07/24/19 15:02 Calcium 9.0 mg/dL (8.4-10.2) 07/24/19 11:12 Total Bilirubin 0.30 mg/dL (0.1-1.2) 07/24/19 11:12 AST 38 units/L (5-40) 07/24/19 11:12 ALT 26 units/L (7-56) 07/24/19 11:12 Alkaline Phosphatase 79 units/L (35-129) 07/24/19 11:12 Troponin T 0.072 ng/mL (0.00-0.029) H 07/24/19 11:12 NT-Pro-B Natriuret Pep 69014 pg/mL (0-900) H 07/24/19 11:12 Total Protein 7.2 g/dL (6.3-8.2) 07/24/19 11:12 Albumin 4.1 g/dL (3.9-5) 07/24/19 11:12 Albumin/Globulin Ratio 1.3 % 07/24/19 11:12 Triglycerides 110 mg/dL (2-149) 07/24/19 11:12 Cholesterol 112 mg/dL (50-199) 07/24/19 11:12 LDL Cholesterol Direct 56 mg/dL (50-130) 07/24/19 11:12 HDL Cholesterol 37 mg/dL (40-59) L 07/24/19 11:12 Cholesterol/HDL Ratio 3.02 % 07/24/19 11:12 Hepatitis A IgM Ab Non-reactive (NonReactive) 07/24/19 16:34 Hep Bs Antigen Non-reactive (Negative) 07/24/19 16:34 Hep B Core IgM Ab Non-reactive (NonReactive) 07/24/19 16:34 Hepatitis C Antibody Non-reactive (NonReactive) 07/24/19 16:34 - Imaging and Cardiology EKG: report reviewed Chest x-ray: report reviewed (Acute early Pulmonary edema) Assessment and Plan Advance Directives: Yes (Full code) VTE prophylaxis?: Chemical Plan of care discussed with patient/family: Yes - Patient Problems (1) Acute exacerbation of CHF (congestive heart failure) Current Visit: Yes Status: Acute Qualifiers: Heart failure type: diastolic Qualified Code(s): I50.33 - Acute on chronic diastolic (congestive) heart failure Plan to address problem: Needs emergent HD for increased ultrafiltration ECHO for EF (2) HTN (hypertension) Current Visit: Yes Status: Chronic Qualifiers: Hypertension type: essential hypertension Qualified Code(s): I10 - Essential (primary) hypertension Plan to address problem: Cont home antihypertensives (3) T2DM (type 2 diabetes mellitus) Current Visit: Yes Status: Chronic Qualifiers: Diabetes mellitus residential insulin use: without residential use Chronic kidney disease stage: on chronic dialysis Plan to address problem: Cont oral hypoglycemics and COverage Check A1c (4) ESRD (end stage renal disease) Current Visit: Yes Status: Chronic Plan to address problem: Cont HD as required For emergent HD today (5) DVT prophylaxis Current Visit: Yes Status: Acute Plan to address problem: On Heparin and GI prophylaxis
[2019-07-25] MEDS: CALCIUM ACETATE 667 MG CAP PO SCH ×3 (07:28→16:22)
--- NOTE | 2019-07-25 08:24 | Progress Note ---
Assessment and Plan Assessment and plan: Patient is a 64-year-old AA man with a history of DM type 2, hypertension, end- stage renal disease requiring dialysis on Thursday and Thursday who presented to [facility] ED with SOB after HD. He was found to have pulmonary edema. * pCXR Impression: 1. Probable acute early bilateral alveolar central pulmonary edema (1) Acute exacerbation of CHF (congestive heart failure) Current Visit: Yes Status: Acute and new onset Qualifiers: Heart failure type: diastolic Qualified Code(s): I50.33 - Acute on chronic diastolic (congestive) heart failure Plan to address problem: Needs emergent HD for increased ultrafiltration ECHO for EF (2) HTN (hypertension) Current Visit: Yes Status: Chronic Qualifiers: Hypertension type: essential hypertension Qualified Code(s): I10 - Essential (primary) hypertension Plan to address problem: Cont home antihypertensives (3) T2DM (type 2 diabetes mellitus) Current Visit: Yes Status: Chronic Qualifiers: Diabetes mellitus care home insulin use: without care home use Chronic kidney disease stage: on chronic dialysis Plan to address problem: Cont oral hypoglycemics and COverage Check A1c (4) ESRD (end stage renal disease) Current Visit: Yes Status: Chronic Plan to address problem: Cont HD as required For emergent HD today (5) DVT prophylaxis Current Visit: Yes Status: Acute Plan to address problem: On Heparin and GI prophylaxis Febrile illness, source unknown, UA not done in ED but abx already started, c onsult ID, SIRS with organ dysfunction, suspect Sepsis, poa, GET stat UA but validilty is unknown since patient is on ABX Disposition: continue inpatient care, CHF work up pending, once fluid status improves then discharge home. History Interval history: Patient was seen and examined. Follow-up on current diagnosis of new onset CHF. No overnight events reported to me. Patient denies any chest pain, shortness breath, nausea/vomiting or severe headaches. Imaging, nursing note, chart, labs and old chart reviewed. Discussed with patient. Hospitalist Physical - Physical exam Narrative exam: Gen: WDWN, NAD, Awake, Alert, Orientated HEENT: NCAT, EOMI, PERRL, OP Clear Neck: supple, no adenopathy, no thyromegaly, no JVD CVS/Heart: RRR, normal S1S2, pulses present bilaterally Chest/Lungs:bilateral crackles, Symmetrical chest expansion, diminished air entry bilaterally GI/Abdomen: soft, NTND, good bowel sounds, no guarding or rebound /Bladder: no suprapubic tenderness, no CVA or paraspinal tenderness Extermity/Skin: no c/c/e, no obvious rash MSK: FROM x 4 Neuro: CN 2-12 grossly intact, no new focal deficits Psych: calm - Constitutional Vitals: Temp Pulse Resp BP Pulse Ox 100.6 F H 92 H 18 150/70 94 07/25/19 07:53 07/25/19 07:53 07/25/19 07:53 07/25/19 07:53 07/25/19 07:53 General appearance: Present: well-nourished Results - Labs CBC & Chem 7: 07/24/19 11:12 07/24/19 11:12 Labs: Laboratory Last Values WBC 8.0 K/mm3 (4.5-11.0) 07/24/19 11:12 RBC 3.14 M/mm3 (3.65-5.03) L 07/24/19 11:12 Hgb 9.0 gm/dl (11.8-15.2) L 07/24/19 11:12 Hct 26.5 % (35.5-45.6) L 07/24/19 11:12 MCV 85 fl (84-94) 07/24/19 11:12 MCH 29 pg (28-32) 07/24/19 11:12 MCHC 34 % (32-34) 07/24/19 11:12 RDW 16.5 % (13.2-15.2) H 07/24/19 11:12 Plt Count 208 K/mm3 (140-440) 07/24/19 11:12 Lymph % (Auto) 5.5 % (13.4-35.0) L 07/24/19 11:12 [place] % (Auto) 7.5 % (0.0-7.3) H 07/24/19 11:12 Eos % (Auto) 2.9 % (0.0-4.3) 07/24/19 11:12 Baso % (Auto) 0.2 % (0.0-1.8) 07/24/19 11:12 Lymph # 0.4 K/mm3 (1.2-5.4) L 07/24/19 11:12 [place] # 0.6 K/mm3 (0.0-0.8) 07/24/19 11:12 Eos # 0.2 K/mm3 (0.0-0.4) 07/24/19 11:12 Baso # 0.0 K/mm3 (0.0-0.1) 07/24/19 11:12 Seg Neutrophils % 83.9 % (40.0-70.0) H 07/24/19 11:12 Seg Neutrophils # 6.7 K/mm3 (1.8-7.7) 07/24/19 11:12 Sodium 140 mmol/L (137-145) 07/24/19 11:12 Potassium 3.9 mmol/L (3.6-5.0) 07/24/19 11:12 Chloride 94.1 mmol/L (98-107) L 07/24/19 11:12 Carbon Dioxide 26 mmol/L (22-30) 07/24/19 11:12 Anion Gap 24 mmol/L 07/24/19 11:12 BUN 31 mg/dL (9-20) H 07/24/19 11:12 Creatinine 8.6 mg/dL (0.8-1.5) H 07/24/19 11:12 Estimated GFR 8 ml/min 07/24/19 11:12 BUN/Creatinine Ratio 4 % 07/24/19 11:12 Glucose 118 mg/dL (75-100) H 07/24/19 11:12 POC Glucose 85 (70-105) 07/24/19 22:40 Lactic Acid 0.60 mmol/L (0.7-2.0) L 07/24/19 15:02 Calcium 9.0 mg/dL (8.4-10.2) 07/24/19 11:12 Total Bilirubin 0.30 mg/dL (0.1-1.2) 07/24/19 11:12 AST 38 units/L (5-40) 07/24/19 11:12 ALT 26 units/L (7-56) 07/24/19 11:12 Alkaline Phosphatase 79 units/L (35-129) 07/24/19 11:12 Troponin T 0.072 ng/mL (0.00-0.029) H 07/24/19 11:12 NT-Pro-B Natriuret Pep 20750 pg/mL (0-900) H 07/24/19 11:12 Total Protein 7.2 g/dL (6.3-8.2) 07/24/19 11:12 Albumin 4.1 g/dL (3.9-5) 07/24/19 11:12 Albumin/Globulin Ratio 1.3 % 07/24/19 11:12 Triglycerides 110 mg/dL (2-149) 07/24/19 11:12 Cholesterol 112 mg/dL (50-199) 07/24/19 11:12 LDL Cholesterol Direct 56 mg/dL (50-130) 07/24/19 11:12 HDL Cholesterol 37 mg/dL (40-59) L 07/24/19 11:12 Cholesterol/HDL Ratio 3.02 % 07/24/19 11:12 Hepatitis A IgM Ab Non-reactive (NonReactive) 07/24/19 16:34 Hep Bs Antigen Non-reactive (Negative) 07/24/19 16:34 Hep B Core IgM Ab Non-reactive (NonReactive) 07/24/19 16:34 Hepatitis C Antibody Non-reactive (NonReactive) 07/24/19 16:34 Active Medications - Current Medications Current Medications: Generic Name Dose Route Start Last Admin Trade Name Freq PRN Reason Stop Dose Admin Acetaminophen 650 mg 07/24/19 22:41 07/24/19 22:49 Tylenol PO 650 mg Q4H PRN Administration Pain, Mild (1-3) Atenolol 50 mg 07/24/19 20:00 07/24/19 22:46 Tenormin PO 50 mg QDAY [facility] Administration Calcium Acetate 667 mg 07/24/19 20:00 07/25/19 07:28 Phoslo PO 667 mg TIDWM [facility] Administration Glipizide 5 mg 07/24/19 20:00 07/24/19 22:47 Glucotrol PO Not Given DAILY [facility] Sodium Chloride 100 mls @ 999 mls/hr 07/24/19 15:26 Nacl 0.9% IV ARVIND PRN Hypotension Cefepime HCl 1 gm in 100 mls @ 200 mls/hr 07/25/19 22:00 Cefepime/Ns 1 Gm/100 Ml IV Q24H [facility] Nifedipine 90 mg 07/24/19 20:00 07/24/19 22:46 Procardia Xl PO 90 mg QDAY [facility] Administration Sodium Bicarbonate 650 mg 07/25/19 10:00 Sodium Bicarbonate PO QDAY [facility]
[2019-07-25] MEDS: NIFEdipine XL 90 MG TAB PO SCH (09:13)
[2019-07-25] MEDS: SODIUM BICARBONATE 650 MG TAB PO SCH (09:13)
[2019-07-25] MEDS: atenoloL 25 MG TAB PO SCH (09:13)
[2019-07-25] MEDS: glipiZIDE 5 MG TAB PO SCH (09:13)
[2019-07-25] MEDS: ACETAMINOPHEN 325 MG TAB PO PRN ×2 (11:31→19:52)
[2019-07-25 11:37] LABS: Bacteria,Urine 1+ /HPF (Negative); Bilirubin,Urine NEG (Negative); Blood,Urine SM (Negative); Color,Urine Yellow (Yellow); Mucus,Urine FEW /HPF; Urobilinogen,Urine < 2.0 mg/dL (<2.0)
[2019-07-25 11:38] LABS: Protein,Urine >2000 mg dL mg/dL (Negative)
[2019-07-25] MEDS ORDERED: CEFEPIME/NS 1 GM/100 ML 1 GM/100 ML BAG IV SCH (12:00)
--- NOTE | 2019-07-25 14:09 | Consultation ---
History of Present Illness - Reason for Consult Consult date: 07/25/19 febrile illness Requesting physician: TATUM ELLIOTT - History of Present Illness The patient is a 64-year-old male with diabetes, hypertension, ESRD on hemodialysis every Thursday, , Thursday came into the emergency room on 07/24/2019 with complaints of shortness of breath. This began on the same day of presentation and did not improve with dialysis. He was started on antibiotics, due to fever, infectious diseases was consulted. He had a MAXIMUM TEMPERATURE of 101.5F on the day of admission. Low-grade temperatures today. Reports a dry cough and some bodyaches. Denies any sick contacts, he lives alone. Review of Systems: General: fever +, few bodyaches HEENT: no new visual disturbance Respiratory: + cough, no sputum, hemoptysis. + shortness of breath Cardiovascular: No chest pain, syncope Gastrointestinal: No nausea, vomiting or diarrhea Genitourinary: No dysuria or hematuria Musculoskeletal: No new or worsening neck pain or back pain Neurologic: No headaches, seizures Hematologic: No easy bruising or bleeding Endocrine: No night sweats or acute weight loss Skin: negative for rash, jaundice Psychiatric: No suicidal or homicidal ideation Medications and Allergies Allergies Allergy/AdvReac Type Severity Reaction Status Date / Time No Known Allergies Allergy Verified 02/04/17 08:30 Home Medications Medication Instructions Recorded Confirmed Last Taken Type Atenolol [Tenormin] 50 mg PO DAILY 01/07/17 07/24/19 02/04/17 History Calcium Acetate 667 mg PO TID 01/07/17 07/24/19 02/03/17 History NIFEdipine [Nifedipine ER] 90 mg PO DAILY 01/07/17 07/24/19 02/04/17 History Sodium Bicarbonate 10 gm PO DAILY 01/07/17 07/24/19 02/03/17 History glipiZIDE [Glucotrol] 5 mg PO DAILY 01/07/17 07/24/19 02/03/17 History oxyCODONE /ACETAMINOPHEN [Percocet 1 - 2 tab PO Q4HR #40 tab 02/04/17 07/24/19 Unknown Rx 5/325] Active Meds: Active Medications Acetaminophen (Tylenol) 650 mg PO Q4H PRN PRN Reason: Pain, Mild (1-3) Last Admin: 07/25/19 11:31 Dose: 650 mg Documented by: Atenolol (Tenormin) 50 mg PO QDAY [facility] Last Admin: 07/25/19 09:13 Dose: 50 mg Documented by: Calcium Acetate (Phoslo) 667 mg PO TIDWM [facility] Last Admin: 07/25/19 11:31 Dose: 667 mg Documented by: Glipizide (Glucotrol) 5 mg PO DAILY [facility] Last Admin: 07/25/19 09:13 Dose: 5 mg Documented by: Sodium Chloride (Nacl 0.9%) 100 mls @ 999 mls/hr IV ARVIND PRN PRN Reason: Hypotension Cefepime HCl (Cefepime/Ns 1 Gm/100 Ml) 1 gm in 100 mls @ 200 mls/hr IV Q24H [facility] Nifedipine (Procardia Xl) 90 mg PO QDAY [facility] Last Admin: 07/25/19 09:13 Dose: 90 mg Documented by: Sodium Bicarbonate (Sodium Bicarbonate) 650 mg PO QDAY [facility] Last Admin: 07/25/19 09:13 Dose: 650 mg Documented by: Physical Examination - Physical Exam Narrative exam: Physical Exam: Constitutional: Alert, cooperative. No acute distress Head, Ears, Nose: Normocephalic, atraumatic. External ears, nose normal Eyes: Conjunctivae/corneas clear. No icterus. No ptosis. Neck: Supple, no meningeal signs Oral: no thrush Cardiovascular: S1, S2 normal. Respiratory: b/l exp rhonchi GI: Soft, non-tender; bowel sounds normal. No peritoneal signs Musculoskeletal: No pedal edema, no cyanosis. AVF + Skin: No rash or abscess Hem/Lymphatic: No palpable cervical or supraclavicular nodes. No lymphangitis Psych: Mood ok. Affect normal Neurological: Awake, alert, oriented. No gross abnormality - Constitutional Vitals: Vital Signs Temp Pulse Resp BP Pulse Ox 99.7 F H 87 18 140/70 94 07/25/19 11:47 07/25/19 11:47 07/25/19 11:47 07/25/19 11:47 07/25/19 11:47 Temperature -Last 24 Hours Temperature 99.7 F Temperature 100.6 F Temperature 99.7 F Temperature 99.1 F Temperature 99.3 F Temperature 97.7 F Temperature 98.2 F Temperature 101.5 F Temperature 99.8 F Results - Labs CBC & Chem 7: 07/24/19 11:12 07/24/19 11:12 Labs: Abnormal lab results 07/24/19 07/25/19 07/25/19 Range/Units 15:02 08:03 11:10 POC Glucose 112 H (70-105) Lactic Acid 0.60 L (0.7-2.0) mmol/L Urine pH 8.0 H (5.0-7.0) 07/25/19 Range/Units 11:58 POC Glucose 136 H (70-105) Lactic Acid (0.7-2.0) mmol/L Urine pH (5.0-7.0) - Imaging and Cardiology Chest x-ray: report reviewed, image reviewed (x-ray shows bilateral diffuse airspace disease) Assessment and Plan Cultures: 07/24/2019 blood culture: No growth in 24 hours A/P: 64-year-old male with diabetes, hypertension, ESRD on hemodialysis every Thursday, , Thursday came into the emergency room on 07/24/2019 with complaints of shortness of breath: 1) Fever, SOB and b/l diffuse airspace disease: ?CHF v/s pneumonia, possibly viral / atypical. 2) ESRD on HD: dose abx accordingly. 3) DM-2: Recs: continue IV Cefepime PO Azithromycin added x 5 days Influenza screen ordered STAT D/W Dr. Elliott. James Quevedo MD, FACP [facility] C: [phone] O: [phone] F: [phone]
[2019-07-25] MEDS: AZITHROMYCIN 250 MG TAB PO SCH (16:22)
--- NOTE | 2019-07-25 18:32 | Consultation ---
History of Present Illness - Reason for Consult Consult date: 07/25/19 end stage renal disease - History of Present Illness 64 y/o AAM with h/o ESRD, well know to our outpatient HD clinic, presents to the ER secondary to dyspnea and chest xray concerning for early signs of pulmonary edema. Patient was urgently dialyzed yesterday. He typically dialyzes on TTS schedule, with his last HD session on Thursday. Past History Past Medical History: diabetes, dialysis, heart failure, hypertension Past Surgical History: Other (AVF creation. ) Family history: no significant family history Medications and Allergies Allergies Allergy/AdvReac Type Severity Reaction Status Date / Time No Known Allergies Allergy Verified 02/04/17 08:30 Home Medications Medication Instructions Recorded Confirmed Last Taken Type Atenolol [Tenormin] 50 mg PO DAILY 01/07/17 07/24/19 02/04/17 History Calcium Acetate 667 mg PO TID 01/07/17 07/24/19 02/03/17 History NIFEdipine [Nifedipine ER] 90 mg PO DAILY 01/07/17 07/24/19 02/04/17 History Sodium Bicarbonate 10 gm PO DAILY 01/07/17 07/24/19 02/03/17 History glipiZIDE [Glucotrol] 5 mg PO DAILY 01/07/17 07/24/19 02/03/17 History oxyCODONE /ACETAMINOPHEN [Percocet 1 - 2 tab PO Q4HR #40 tab 02/04/17 07/24/19 Unknown Rx 5/325] Active Meds: Active Medications Acetaminophen (Tylenol) 650 mg PO Q4H PRN PRN Reason: Pain, Mild (1-3) Last Admin: 07/25/19 11:31 Dose: 650 mg Documented by: Atenolol (Tenormin) 50 mg PO QDAY [facility] Last Admin: 07/25/19 09:13 Dose: 50 mg Documented by: Azithromycin (Zithromax) 500 mg PO QDAY [facility] Stop: 07/30/19 15:59 Last Admin: 07/25/19 16:22 Dose: 500 mg Documented by: Calcium Acetate (Phoslo) 667 mg PO TIDWM [facility] Last Admin: 07/25/19 16:22 Dose: 667 mg Documented by: Glipizide (Glucotrol) 5 mg PO DAILY [facility] Last Admin: 07/25/19 09:13 Dose: 5 mg Documented by: Sodium Chloride (Nacl 0.9%) 100 mls @ 999 mls/hr IV ARVIND PRN PRN Reason: Hypotension Cefepime HCl (Cefepime/Ns 1 Gm/100 Ml) 1 gm in 100 mls @ 200 mls/hr IV Q24H [facility] Nifedipine (Procardia Xl) 90 mg PO QDAY [facility] Last Admin: 07/25/19 09:13 Dose: 90 mg Documented by: Sodium Bicarbonate (Sodium Bicarbonate) 650 mg PO QDAY [facility] Last Admin: 07/25/19 09:13 Dose: 650 mg Documented by: Review of Systems All systems: negative Constitutional: fatigue, weakness Cardiovascular: orthopnea, dyspnea on exertion Exam - Vital Signs Vital signs: Vital Signs Temp Pulse Resp BP Pulse Ox 100.7 F H 116 H 20 195/89 97 07/24/19 10:42 07/24/19 10:42 07/24/19 10:42 07/24/19 10:42 07/24/19 10:42 - General Appearance General appearance: well-developed, well-nourished, appears stated age EENT: ATNC, PERRL Neck: Present: neck supple, trachea midline Respiratory: Decreased Breath Sounds Gastrointestinal: Present: normal, normoactive bowel sounds Integumentary: no rash, warm and dry Neurologic: no asterixis, alert and oriented x3 Musculoskeletal: Present: deferred Psychiatric: mood/affect appropriate Results - Lab Results 07/24/19 11:12 07/24/19 11:12 Most recent lab results Calcium 9.0 mg/dL (8.4-10.2) 07/24/19 11:12 Assessment and Plan - Patient Problems (1) Volume overload Current Visit: Yes Status: Acute Plan to address problem: S/P extra HD session with goal removal of 3L UF. Will plan to dialyze on TTS schedule, with extra sessions for isolated UF as needed in order to optimize his volume status. (2) ESRD (end stage renal disease) Current Visit: Yes Status: Chronic Plan to address problem: Maintain on inpatient TTS schedule per outpatient regimen. (3) HTN (hypertension) Current Visit: Yes Status: Chronic Qualifiers: Hypertension type: essential hypertension Qualified Code(s): I10 - Essential (primary) hypertension Plan to address problem: Monitor patient on current antihypertensive regimen. (4) T2DM (type 2 diabetes mellitus) Current Visit: Yes Status: Chronic Qualifiers: Diabetes mellitus assisted insulin use: without assisted use Chronic kidney disease stage: on chronic dialysis Plan to address problem: diabetes management per primary attending. (5) Anemia in chronic kidney disease (CKD) Current Visit: Yes Status: Acute Qualifiers: Chronic kidney disease stage: on chronic dialysis Qualified Code(s): N18.6 - End stage renal disease; D63.1 - Anemia in chronic kidney disease; Z99.2 - Dependence on renal dialysis Plan to address problem: EPO with HD therapy to maintain Hgb 10-11.5.
[2019-07-25] MEDS: CEFEPIME/NS 1 GM/100 ML 1 GM/100 ML BAG IV SCH (21:39)
[2019-07-26] MEDS: guaiFENesin 100 MG/5 ML ORAL LIQD PO PRN ×5 (00:06→23:14)
--- NOTE | 2019-07-26 07:57 | Progress Note ---
Assessment and Plan - Patient Problems (1) Volume overload Current Visit: Yes Status: Acute Plan to address problem: S/P extra HD session with goal removal of 3L UF. Will plan to dialyze on TTS schedule, with extra sessions for isolated UF as needed in order to optimize his volume status. (2) ESRD (end stage renal disease) Current Visit: Yes Status: Chronic Plan to address problem: Maintain on inpatient TTS schedule per outpatient regimen. (3) HTN (hypertension) Current Visit: Yes Status: Chronic Qualifiers: Hypertension type: essential hypertension Qualified Code(s): I10 - Essential (primary) hypertension Plan to address problem: Monitor patient on current antihypertensive regimen. 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 (5) Anemia in chronic kidney disease (CKD) Current Visit: Yes Status: Acute Qualifiers: Chronic kidney disease stage: on chronic dialysis Qualified Code(s): N18.6 - End stage renal disease; D63.1 - Anemia in chronic kidney disease; Z99.2 - Dependence on renal dialysis Plan to address problem: EPO with HD therapy to maintain Hgb 10-11.5. Subjective Date of service: 07/26/19 Interval history: No acute issues overnight, afebrile. Plan for HD today. Objective - Vital Signs Vital signs: Vital Signs - 12hr 07/25/19 07/25/19 07/25/19 20:23 20:34 20:52 Temperature Pulse Rate 87 Respiratory 20 18 Rate Respiratory Rate [ Generalized] Blood Pressure O2 Sat by Pulse 94 Oximetry 07/25/19 07/25/19 07/25/19 21:38 22:00 23:04 Temperature 99.7 F H 100.0 F H Pulse Rate 86 82 Respiratory 20 18 18 Rate Respiratory 18 Rate [ Generalized] Blood Pressure 116/63 126/66 O2 Sat by Pulse 89 94 90 Oximetry 07/26/19 04:11 Temperature 99.9 F H Pulse Rate 84 Respiratory 18 Rate Respiratory Rate [ Generalized] Blood Pressure 129/67 O2 Sat by Pulse 87 Oximetry - General Appearance General appearance: well-developed, well-nourished, appears stated age EENT: ATNC, PERRL Neck: no JVD, no thyromegaly Respiratory: Present: Clear to Ascultation Cardiology: regular, S1S2 Gastrointestinal: normal, normoactive bowel sounds Integumentary: no rash, warm and dry Neurologic: no focal deficit, alert and oriented x3 Musculoskeletal: deferred Psychiatric: mood/affect appropriate, cooperative - Lab 07/24/19 11:12 07/24/19 11:12 Most recent lab results Calcium 9.0 mg/dL (8.4-10.2) 07/24/19 11:12 - Allied health notes Allied health notes reviewed: nursing Medications & Allergies - Medications Allergies/Adverse Reactions: Allergies No Known Allergies Allergy (Verified 02/04/17 08:30) Home Medications: Home Medications Medication Instructions Recorded Confirmed Last Taken Type Atenolol [Tenormin] 50 mg PO DAILY 01/07/17 07/24/19 02/04/17 History Calcium Acetate 667 mg PO TID 01/07/17 07/24/19 02/03/17 History NIFEdipine [Nifedipine ER] 90 mg PO DAILY 01/07/17 07/24/19 02/04/17 History Sodium Bicarbonate 10 gm PO DAILY 01/07/17 07/24/19 02/03/17 History glipiZIDE [Glucotrol] 5 mg PO DAILY 01/07/17 07/24/19 02/03/17 History oxyCODONE /ACETAMINOPHEN [Percocet 1 - 2 tab PO Q4HR #40 tab 02/04/17 07/24/19 Unknown Rx 5/325] Active Medications: Generic Name Dose Route Start Last Admin Trade Name Freq PRN Reason Stop Dose Admin Acetaminophen 650 mg 07/24/19 22:41 07/25/19 19:52 Tylenol PO 650 mg Q4H PRN Administration Pain, Mild (1-3) Atenolol 50 mg 07/24/19 20:00 07/25/19 09:13 Tenormin PO 50 mg QDAY [facility] Administration Azithromycin 500 mg 07/25/19 16:00 07/25/19 16:22 Zithromax PO 07/30/19 15:59 500 mg QDAY [facility] Administration Calcium Acetate 667 mg 07/24/19 20:00 07/25/19 16:22 Phoslo PO 667 mg TIDWM [facility] Administration Glipizide 5 mg 07/24/19 20:00 07/25/19 09:13 Glucotrol PO 5 mg DAILY [facility] Administration Guaifenesin 200 mg 07/25/19 23:12 07/26/19 03:56 Robitussin PO 200 mg Q4H PRN Administration Cough Cefepime HCl 1 gm in 100 mls @ 200 mls/hr 07/25/19 22:00 07/25/19 21:39 Cefepime/Ns 1 Gm/100 Ml IV 200 mls/hr Q24H [facility] Administration Sodium Chloride 100 mls @ 999 mls/hr 07/26/19 08:00 Nacl 0.9% IV ARVIND PRN Hypotension Nifedipine 90 mg 07/24/19 20:00 07/25/19 09:13 Procardia Xl PO 90 mg QDAY [facility] Administration Sodium Bicarbonate 650 mg 07/25/19 10:00 07/25/19 09:13 Sodium Bicarbonate PO 650 mg QDAY [facility] Administration
[2019-07-26] MEDS ORDERED: SODIUM CHLORIDE 0.9% 100 ML IV PRN (08:00)
[2019-07-26] MEDS: CALCIUM ACETATE 667 MG CAP PO SCH ×4 (08:27→18:14)
[2019-07-26] MEDS: glipiZIDE 5 MG TAB PO SCH (09:37)
[2019-07-26] MEDS: SODIUM BICARBONATE 650 MG TAB PO SCH (09:37)
[2019-07-26] MEDS: AZITHROMYCIN 250 MG TAB PO SCH (09:37)
[2019-07-26] MEDS: NIFEdipine XL 90 MG TAB PO SCH (10:35)
[2019-07-26] MEDS: atenoloL 25 MG TAB PO SCH (10:39)
--- NOTE | 2019-07-26 12:52 | Progress Note ---
Assessment and Plan Assessment and plan: Patient is a 64-year-old AA man with a history of DM type 2, hypertension, end- stage renal disease requiring dialysis on Thursday and Thursday who [facility] with [facility]B after HD. He was found to have pulmonary edema. * pCXR Impression: 1. Probable acute early bilateral alveolar central pulmonary edema (1) Acute exacerbation of CHF (congestive heart failure) Current Visit: Yes Status: Acute and new onset Qualifiers: Heart failure type: diastolic Qualified Code(s): I50.33 - Acute on chronic diastolic (congestive) heart failure Plan to address problem: Needs emergent HD for increased ultrafiltration ECHO for EF (2) HTN (hypertension) Current Visit: Yes Status: Chronic Qualifiers: Hypertension type: essential hypertension Qualified Code(s): I10 - Essential (primary) hypertension Plan to address problem: Cont home antihypertensives (3) T2DM (type 2 diabetes mellitus) Current Visit: Yes Status: Chronic Qualifiers: Diabetes mellitus senior living insulin use: without senior living use Chronic kidney disease stage: on chronic dialysis Plan to address problem: Cont oral hypoglycemics and COverage Check A1c (4) ESRD (end stage renal disease) Current Visit: Yes Status: Chronic Plan to address problem: Cont HD as required For emergent HD today (5) DVT prophylaxis Current Visit: Yes Status: Acute Plan to address problem: On Heparin and GI prophylaxis SIRS WITH ORGAN DYSFUNCTION: Febrile illness, Resolved UA negative, ED but abx already started, Await ID in put, Disposition: continue inpatient care, CHF work up pending, once fluid status improves then discharge home. History Interval history: Patient was seen and examined. Follow-up on current diagnosis of new onset CHF. No overnight events reported to me. He any chest pain, shortness breath, nausea/vomiting or severe headaches. Imaging, nursing note, chart, labs and old chart reviewed. Discussed with patient. he is for dialysis today Hospitalist Physical - Physical exam Narrative exam: Gen: WDWN, NAD, Awake, Alert, Orientated, No clinical change HEENT: NCAT, EOMI, PERRL, OP Clear Neck: supple, no adenopathy, no thyromegaly, no JVD CVS/Heart: RRR, normal S1S2, pulses present bilaterally Chest/Lungs:Diminshed, Symmetrical chest expansion, diminished air entry bilaterally GI/Abdomen: soft, NTND, good bowel sounds, no guarding or rebound /Bladder: no suprapubic tenderness, no CVA or paraspinal tenderness Extermity/Skin: no c/c/e, no obvious rash MSK: FROM x 4 Neuro: CN 2-12 grossly intact, no new focal deficits Psych: calm - Constitutional Vitals: Temp Pulse Resp BP Pulse Ox 98.9 F 83 18 147/74 92 07/26/19 09:52 07/26/19 12:00 07/26/19 10:00 07/26/19 12:00 07/26/19 10:00 General appearance: Present: well-nourished Results - Labs CBC & Chem 7: 07/24/19 11:12 07/24/19 11:12 Labs: Laboratory Last Values WBC 8.0 K/mm3 (4.5-11.0) 07/24/19 11:12 RBC 3.14 M/mm3 (3.65-5.03) L 07/24/19 11:12 Hgb 9.0 gm/dl (11.8-15.2) L 07/24/19 11:12 Hct 26.5 % (35.5-45.6) L 07/24/19 11:12 MCV 85 fl (84-94) 07/24/19 11:12 MCH 29 pg (28-32) 07/24/19 11:12 MCHC 34 % (32-34) 07/24/19 11:12 RDW 16.5 % (13.2-15.2) H 07/24/19 11:12 Plt Count 208 K/mm3 (140-440) 07/24/19 11:12 Lymph % (Auto) 5.5 % (13.4-35.0) L 07/24/19 11:12 [place] % (Auto) 7.5 % (0.0-7.3) H 07/24/19 11:12 Eos % (Auto) 2.9 % (0.0-4.3) 07/24/19 11:12 Baso % (Auto) 0.2 % (0.0-1.8) 07/24/19 11:12 Lymph # 0.4 K/mm3 (1.2-5.4) L 07/24/19 11:12 [place] # 0.6 K/mm3 (0.0-0.8) 07/24/19 11:12 Eos # 0.2 K/mm3 (0.0-0.4) 07/24/19 11:12 Baso # 0.0 K/mm3 (0.0-0.1) 07/24/19 11:12 Seg Neutrophils % 83.9 % (40.0-70.0) H 07/24/19 11:12 Seg Neutrophils # 6.7 K/mm3 (1.8-7.7) 07/24/19 11:12 Sodium 140 mmol/L (137-145) 07/24/19 11:12 Potassium 3.9 mmol/L (3.6-5.0) 07/24/19 11:12 Chloride 94.1 mmol/L (98-107) L 07/24/19 11:12 Carbon Dioxide 26 mmol/L (22-30) 07/24/19 11:12 Anion Gap 24 mmol/L 07/24/19 11:12 BUN 31 mg/dL (9-20) H 07/24/19 11:12 Creatinine 8.6 mg/dL (0.8-1.5) H 07/24/19 11:12 Estimated GFR 8 ml/min 07/24/19 11:12 BUN/Creatinine Ratio 4 % 07/24/19 11:12 Glucose 118 mg/dL (75-100) H 07/24/19 11:12 POC Glucose 87 (70-105) 07/26/19 08:32 Lactic Acid 0.60 mmol/L (0.7-2.0) L 07/24/19 15:02 Calcium 9.0 mg/dL (8.4-10.2) 07/24/19 11:12 Total Bilirubin 0.30 mg/dL (0.1-1.2) 07/24/19 11:12 AST 38 units/L (5-40) 07/24/19 11:12 ALT 26 units/L (7-56) 07/24/19 11:12 Alkaline Phosphatase 79 units/L (35-129) 07/24/19 11:12 Troponin T 0.072 ng/mL (0.00-0.029) H 07/24/19 11:12 NT-Pro-B Natriuret Pep 12757 pg/mL (0-900) H 07/24/19 11:12 Total Protein 7.2 g/dL (6.3-8.2) 07/24/19 11:12 Albumin 4.1 g/dL (3.9-5) 07/24/19 11:12 Albumin/Globulin Ratio 1.3 % 07/24/19 11:12 Triglycerides 110 mg/dL (2-149) 07/24/19 11:12 Cholesterol 112 mg/dL (50-199) 07/24/19 11:12 LDL Cholesterol Direct 56 mg/dL (50-130) 07/24/19 11:12 HDL Cholesterol 37 mg/dL (40-59) L 07/24/19 11:12 Cholesterol/HDL Ratio 3.02 % 07/24/19 11:12 Urine Color Yellow (Yellow) 07/25/19 11:10 Urine Turbidity Clear (Clear) 07/25/19 11:10 Urine pH 8.0 (5.0-7.0) H 07/25/19 11:10 Ur Specific [place] 1.014 (1.003-1.030) 07/25/19 11:10 Urine Protein >2000 mg dl mg/dL (Negative) 07/25/19 11:10 Urine Glucose (UA) 150 mg/dL (Negative) 07/25/19 11:10 Urine Ketones Neg mg/dL (Negative) 07/25/19 11:10 Urine Blood Sm (Negative) 07/25/19 11:10 Urine Nitrite Neg (Negative) 07/25/19 11:10 Urine Bilirubin Neg (Negative) 07/25/19 11:10 Urine Urobilinogen < 2.0 mg/dL (<2.0) 07/25/19 11:10 Ur Leukocyte Esterase Neg (Negative) 07/25/19 11:10 Urine WBC (Auto) 2.0 /HPF (0.0-6.0) 07/25/19 11:10 Urine RBC (Auto) 5.0 /HPF (0.0-6.0) 07/25/19 11:10 U Epithel Cells (Auto) < 1.0 /HPF (0-13.0) 07/25/19 11:10 Urine Bacteria (Auto) 1+ /HPF (Negative) 07/25/19 11:10 Urine Mucus Few /HPF 07/25/19 11:10 Hepatitis A IgM Ab Non-reactive (NonReactive) 07/24/19 16:34 Hep Bs Antigen Non-reactive (Negative) 07/24/19 16:34 Hep B Core IgM Ab Non-reactive (NonReactive) 07/24/19 16:34 Hepatitis C Antibody Non-reactive (NonReactive) 07/24/19 16:34 Active Medications - Current Medications Current Medications: Generic Name Dose Route Start Last Admin Trade Name Freq PRN Reason Stop Dose Admin Acetaminophen 650 mg 07/24/19 22:41 07/25/19 19:52 Tylenol PO 650 mg Q4H PRN Administration Pain, Mild (1-3) Atenolol 50 mg 07/24/19 20:00 07/26/19 10:39 Tenormin PO Not Given QDAY [facility] Azithromycin 500 mg 07/25/19 16:00 07/26/19 09:37 Zithromax PO 07/30/19 15:59 500 mg QDAY [facility] Administration Calcium Acetate 667 mg 07/24/19 20:00 07/26/19 11:24 Phoslo PO Not Given TIDWM [facility] Glipizide 5 mg 07/24/19 20:00 07/26/19 09:37 Glucotrol PO 5 mg DAILY [facility] Administration Guaifenesin 200 mg 07/25/19 23:12 07/26/19 08:43 Robitussin PO 200 mg Q4H PRN Administration Cough Cefepime HCl 1 gm in 100 mls @ 200 mls/hr 07/25/19 22:00 07/25/19 21:39 Cefepime/Ns 1 Gm/100 Ml IV 200 mls/hr Q24H [facility] Administration Sodium Chloride 100 mls @ 999 mls/hr 07/26/19 08:00 Nacl 0.9% IV ARVIND PRN Hypotension Nifedipine 90 mg 07/24/19 20:00 07/26/19 10:35 Procardia Xl PO Not Given QDAY [facility] Sodium Bicarbonate 650 mg 07/25/19 10:00 07/26/19 09:37 Sodium Bicarbonate PO 650 mg QDAY [facility] Administration
--- NOTE | 2019-07-26 14:56 | Progress Note ---
Assessment and Plan Cultures: 07/24/2019 blood culture: No growth in 24 hours A/P: 64-year-old male with diabetes, hypertension, ESRD on hemodialysis every Thursday, , Thursday came into the emergency room on 07/24/2019 with complaints of shortness of breath: 1) Fever, SOB and b/l diffuse airspace disease: ?CHF v/s pneumonia, possibly viral / atypical. 2) ESRD on HD: dose abx accordingly. 3) DM-2 Recs: continue IV Cefepime + PO Azithromycin Influenza swab still not collected If patient remains afebrile, could be discharged home tomorrow on PO Ceftin and Azithromycin x 3 days James Quevedo MD, FACP [facility] C: [phone] O: [phone] F: [phone] Subjective Date of service: 07/26/19 Interval history: Low grade temperature. Otherwise feels well today. Breathing is improving. No nausea, vomiting. No rash. Objective - Exam Narrative Exam: Physical Exam: Constitutional: Alert, cooperative. No acute distress Head, Ears, Nose: Normocephalic, atraumatic. External ears, nose normal Eyes: Conjunctivae/corneas clear. No icterus. No ptosis. Neck: Supple, no meningeal signs Oral: no thrush Cardiovascular: S1, S2 normal. Respiratory: few rhonchi b/l GI: Soft, non-tender; bowel sounds normal. No peritoneal signs Musculoskeletal: No pedal edema, no cyanosis. AVF + Skin: No rash or abscess Hem/Lymphatic: No palpable cervical or supraclavicular nodes. No lymphangitis Psych: Mood ok. Affect normal Neurological: Awake, alert, oriented. No gross abnormality - Constitutional Vitals: Vital Signs Temp Pulse Resp BP Pulse Ox 97.2 F L 88 18 146/65 92 07/26/19 13:30 07/26/19 13:30 07/26/19 13:30 07/26/19 13:30 07/26/19 10:00 Temperature -Last 24 Hours Temperature 97.2 F Temperature 98.9 F Temperature 99.4 F Temperature 99.9 F Temperature 100.0 F Temperature 99.7 F Temperature 101.9 F Temperature 99.0 F - Labs CBC & Chem 7: 07/24/19 11:12 07/24/19 11:12 Labs: Abnormal lab results 07/25/19 07/25/19 Range/Units 16:59 20:55 POC Glucose 120 H 153 H (70-105)
[2019-07-26] MEDS: ACETAMINOPHEN 325 MG TAB PO PRN (16:06)
[2019-07-26] MEDS: CEFEPIME/NS 1 GM/100 ML 1 GM/100 ML BAG IV SCH (21:50)
[2019-07-27] MEDS: guaiFENesin 100 MG/5 ML ORAL LIQD PO PRN ×2 (04:23→08:44)
[2019-07-27] MEDS: CALCIUM ACETATE 667 MG CAP PO SCH ×2 (08:44→13:00)
[2019-07-27] MEDS: SODIUM BICARBONATE 650 MG TAB PO SCH (09:20)
[2019-07-27] MEDS: NIFEdipine XL 90 MG TAB PO SCH (09:20)
[2019-07-27] MEDS: AZITHROMYCIN 250 MG TAB PO SCH (09:20)
[2019-07-27] MEDS: glipiZIDE 5 MG TAB PO SCH (09:20)
[2019-07-27] MEDS: atenoloL 25 MG TAB PO SCH (09:20)
[2019-07-27 09:21] VITALS: BP 153/69
--- NOTE | 2019-07-27 10:19 | Progress Note ---
Assessment and Plan - Patient Problems (1) Volume overload Current Visit: Yes Status: Acute Plan to address problem: Volume status has improved at this time with extra ultrafiltration session on Thursday and full session yesterday. Continue to encourage and counseled patient on the importance of sodium and fluid restriction. No further requirements for hemodialysis today. From nephrology standpoint patient is stable for discharge at this time. We'll follow-up with him in the outpatient dialysis unit. (2) ESRD (end stage renal disease) Current Visit: Yes Status: Chronic Plan to address problem: Maintain on inpatient TTS schedule per outpatient regimen. (3) HTN (hypertension) Current Visit: Yes Status: Chronic Qualifiers: Hypertension type: essential hypertension Qualified Code(s): I10 - Essential (primary) hypertension Plan to address problem: Monitor patient on current antihypertensive regimen. (4) T2DM (type 2 diabetes mellitus) Current Visit: Yes Status: Chronic Qualifiers: Diabetes mellitus residential insulin use: without salvage determiner use Chronic kidney disease stage: on chronic dialysis Plan to address problem: diabetes management per primary attending. (5) Anemia in chronic kidney disease (CKD) Current Visit: Yes Status: Acute Qualifiers: Chronic kidney disease stage: on chronic dialysis Qualified Code(s): N18.6 - End stage renal disease; D63.1 - Anemia in chronic kidney disease; Z99.2 - Dependence on renal dialysis Plan to address problem: EPO with HD therapy to maintain Hgb 10-11.5. Subjective Date of service: 07/27/19 Interval history: No acute issues overnight. Patient received hemodialysis yesterday with removal of an additional 3 L of ultrafiltration. Objective - Vital Signs Vital signs: Vital Signs - 12hr 07/26/19 07/27/19 07/27/19 22:27 00:00 03:57 Temperature 99.9 F H 98.6 F Pulse Rate 82 80 84 Respiratory 18 18 Rate Blood Pressure 139/63 146/65 O2 Sat by Pulse 93 93 Oximetry 07/27/19 07/27/19 07/27/19 08:11 09:18 09:19 Temperature 98.6 F Pulse Rate 82 86 86 Respiratory 18 Rate Blood Pressure 140/69 153/69 O2 Sat by Pulse 99 93 95 Oximetry 07/27/19 09:20 Temperature Pulse Rate 86 Respiratory Rate Blood Pressure 153/69 O2 Sat by Pulse Oximetry - General Appearance General appearance: well-developed, well-nourished, appears stated age EENT: ATNC, PERRL Neck: no JVD, no thyromegaly Respiratory: Present: Clear to Ascultation Cardiology: regular, S1S2 Gastrointestinal: normal, normoactive bowel sounds Integumentary: no rash, warm and dry Neurologic: no focal deficit, alert and oriented x3 Musculoskeletal: deferred Psychiatric: mood/affect appropriate, cooperative - Lab 07/24/19 11:12 07/24/19 11:12 Most recent lab results Calcium 9.0 mg/dL (8.4-10.2) 07/24/19 11:12 Medications & Allergies - Medications Allergies/Adverse Reactions: Allergies No Known Allergies Allergy (Verified 02/04/17 08:30) Home Medications: Home Medications Medication Instructions Recorded Confirmed Last Taken Type Atenolol [Tenormin] 50 mg PO DAILY 01/07/17 07/24/19 02/04/17 History Calcium Acetate 667 mg PO TID 01/07/17 07/24/19 02/03/17 History NIFEdipine [Nifedipine ER] 90 mg PO DAILY 01/07/17 07/24/19 02/04/17 History Sodium Bicarbonate 10 gm PO DAILY 01/07/17 07/24/19 02/03/17 History glipiZIDE [Glucotrol] 5 mg PO DAILY 01/07/17 07/24/19 02/03/17 History oxyCODONE /ACETAMINOPHEN [Percocet 1 - 2 tab PO Q4HR #40 tab 02/04/17 07/24/19 Unknown Rx 5/325] Active Medications: Generic Name Dose Route Start Last Admin Trade Name Eliseoq PRN Reason Stop Dose Admin Acetaminophen 650 mg 07/24/19 22:41 07/26/19 16:06 Tylenol PO 650 mg Q4H PRN Administration Pain, Mild (1-3) Atenolol 50 mg 07/24/19 20:00 07/27/19 09:20 Tenormin PO 50 mg QDAY SANTA Administration Azithromycin 500 mg 07/25/19 16:00 07/27/19 09:20 Zithromax PO 07/30/19 15:59 500 mg QDAY SANTA Administration Calcium Acetate 667 mg 07/24/19 20:00 07/27/19 08:44 Phoslo PO 667 mg TIDWM SANTA Administration Glipizide 5 mg 07/24/19 20:00 07/27/19 09:20 Glucotrol PO 5 mg DAILY SANTA Administration Guaifenesin 200 mg 07/25/19 23:12 07/27/19 08:44 Robitussin PO 200 mg Q4H PRN Administration Cough Cefepime HCl 1 gm in 100 mls @ 200 mls/hr 07/25/19 22:00 07/26/19 21:50 Cefepime/Ns 1 Gm/100 Ml IV 200 mls/hr Q24H SANTA Administration Sodium Chloride 100 mls @ 999 mls/hr 07/26/19 08:00 Nacl 0.9% IV ARVIND PRN Hypotension Nifedipine 90 mg 07/24/19 20:00 07/27/19 09:20 Procardia Xl PO 90 mg QDAY SANTA Administration Sodium Bicarbonate 650 mg 07/25/19 10:00 07/27/19 09:20 Sodium Bicarbonate PO 650 mg QDAY SANTA Administration
--- NOTE | 2019-07-27 11:54 | Discharge Summary ---
Providers - Providers Date of Admission: 07/25/19 08:20 Attending physician: ADOLFO ANTOINE MD 07/24/19 15:14 Consult to Physician [CONS] Urgent Comment: Consulting Provider: NOA VICTOR Physician Instructions: Reason For Exam: Dialysis 07/25/19 08:25 Consult to Physician [CONS] Routine Comment: Consulting Provider: ALEXANDRA BRADY Physician Instructions: Reason For Exam: febrile illness Primary care physician: [employer] Hospitalization Reason for admission: fluid overload Condition: Stable Hospital course: Patient is a 64-year-old AA man with a history of DM type 2, hypertension, end- stage renal disease requiring dialysis on Thursday and Thursday who presented to [facility] ED with SOB after HD. He was found to have pulmonary edema. * pCXR Impression: 1. Probable acute early bilateral alveolar central pulmonary edema (1) Acute exacerbation of diastolic CHF (congestive heart failure) Patient was treated with emergent HD for increased ultrafiltration Echo showed EF of 60-65% He clinically improved following repeated dialysis (2) HTN (hypertension) Current Visit: Yes Status: Chronic Qualifiers: Hypertension type: essential hypertension Qualified Code(s): I10 - Essential (primary) hypertension Plan to address problem: Cont home antihypertensives (3) T2DM (type 2 diabetes mellitus) Current Visit: Yes Status: Chronic Qualifiers: Diabetes mellitus group home insulin use: without group home use Chronic kidney disease stage: on chronic dialysis Plan to address problem: Cont oral hypoglycemics and COverage (4) ESRD (end stage renal disease) Current Visit: Yes Status: Chronic Plan to address problem: Cont HD as required (5)SIRS WITH ORGAN DYSFUNCTION: Febrile illness, Resolved UA negative, ED but abx already started, A ID evaluated the patient and started on I IV Cefepime + PO Azithromycin AND DISCHARGED ON PO Ceftin and Azithromycin x 3 days sepsis ruled out Home oxygen eval was done Disposition: - TO HOME OR SELFCARE Time spent for discharge: 35 mins Core Measure Documentation - Palliative Care Palliative Care/ Comfort Measures: Not Applicable - Core Measures Any of the following diagnoses?: heart failure - Heart Failure Discharge Requirements [facility]A/ARB for LVSD if EF <40%: No Reason for no AUR[facility]A/ARB: Renal impairment Beta kala at discharge: Yes Exam - Physical Exam Narrative exam: Gen: WDWN, NAD, Awake, Alert, Orientated, sitting up in bed HEENT: NCAT, EOMI, PERRL, OP Clear Neck: supple, no adenopathy, no thyromegaly, no JVD CVS/Heart: RRR, normal S1S2, pulses present bilaterally Chest/Lungs:Diminshed, Symmetrical chest expansion, diminished air entry bilaterally GI/Abdomen: soft, NTND, good bowel sounds, no guarding or rebound /Bladder: no suprapubic tenderness, no CVA or paraspinal tenderness Extermity/Skin: no c/c/e, no obvious rash MSK: FROM x 4 Neuro: CN 2-12 grossly intact, no new focal deficits Psych: calm - Constitutional Vitals: Temp Pulse Resp BP Pulse Ox 98.6 F 86 18 153/69 95 07/27/19 08:11 07/27/19 09:20 07/27/19 08:11 07/27/19 09:20 07/27/19 09:19 Plan Activity: advance as tolerated, fall precautions Diet: low fat, low salt, renal Special Instructions: record daily BP diary Care Plan Goals: continue optimized pulmonary, cardiac and renal status and reduce hospitalization Plan of Treatment: continue complaince with dialysis and medications Health Concerns: complications of esrd Follow up with: PRIMARY CARE, [Primary Care Provider] - 3-5 Days ALEXANDRA BRADY MD [Staff Physician] - 7 Days STEFAN JONES DO [Staff Physician] - 7 Days LASHONDA MERAZ MD [Staff Physician] - 7 Days Forms: Work/School Release Form Prescriptions: cefUROXime [Ceftin] 250 mg PO Q12H #6 tablet Azithromycin [Zithromax TAB] 500 mg PO QDAY #3 tablet
--- NOTE | 2019-07-27 12:27 | Progress Note ---
Assessment and Plan Cultures: 07/24/2019 blood culture: No growth MRSA PCR is negative A/P: 64-year-old male with diabetes, hypertension, ESRD on hemodialysis every Thursday, , Thursday came into the emergency room on 07/24/2019 with complaints of shortness of breath: 1) Fever, SOB and b/l diffuse airspace disease: ?CHF v/s pneumonia, possibly viral / atypical. 2) ESRD on HD: dose abx accordingly. 3) DM-2 Recs: OK for discharge from ID standpoint on PO Ceftin 500 mg daily and Azithromycin 500 mg daily x 3 days James Quevedo MD, FACP [facility] ([facility] C: [phone] O: [phone] F: [phone] Subjective Date of service: 07/27/19 Interval history: Low grade fever yesterday. Otherwise says he is feeling well. Still somewhat short of breath. Oxygen being weaned and planned to eval off oxygen. Objective - Exam Narrative Exam: Physical Exam: Constitutional: Alert, cooperative. No acute distress Head, Ears, Nose: Normocephalic, atraumatic. External ears, nose normal Eyes: Conjunctivae/corneas clear. No icterus. No ptosis. Neck: Supple, no meningeal signs Oral: no thrush Cardiovascular: S1, S2 normal. Respiratory: clear with no wheeze or rhonchi GI: Soft, non-tender; bowel sounds normal. No peritoneal signs Musculoskeletal: No pedal edema, no cyanosis. AVF + Skin: No rash or abscess Hem/Lymphatic: No palpable cervical or supraclavicular nodes. No lymphangitis Psych: Mood ok. Affect normal Neurological: Awake, alert, oriented. No gross abnormality - Constitutional Vitals: Vital Signs Temp Pulse Resp BP Pulse Ox 98.6 F 86 18 153/69 95 07/27/19 08:11 07/27/19 09:20 07/27/19 08:11 07/27/19 09:20 07/27/19 09:19 Temperature -Last 24 Hours Temperature 98.6 F Temperature 98.6 F Temperature 99.9 F Temperature 99.7 F Temperature 100.4 F Temperature 97.2 F - Labs CBC & Chem 7: 07/24/19 11:12 07/24/19 11:12 Labs: Abnormal lab results 07/26/19 07/26/19 07/27/19 Range/Units 16:07 20:49 11:45 POC Glucose 138 H 186 H 182 H (70-105)
== END 2019-07-27 16:45 | disposition home or self-care (01) | DRG 291 ==
LOC: ED 10:07 → 4A 16:50 → OBSVTOIN 07-25 08:20
PROVIDERS: ADMIT Internal Medicine; ATTEND Internal Medicine
PROC: 5A1D70Z Performance of Urinary Filtration, Intermittent, Less than 6 Hours Per Day (ICD-10-PCS; principal; 2019-07-24)
PROC: 5A1D70Z Performance of Urinary Filtration, Intermittent, Less than 6 Hours Per Day (ICD-10-PCS; 2019-07-26)
DX: I13.2 Hypertensive heart and chronic kidney disease with heart failure and with stage 5 chronic kidney disease, or end stage renal disease (principal); I50.33 Acute on chronic diastolic (congestive) heart failure; N18.6 End stage renal disease; R65.11 Systemic inflammatory response syndrome (SIRS) of non-infectious origin with acute organ dysfunction; E11.22 Type 2 diabetes mellitus with diabetic chronic kidney disease; D63.1 Anemia in chronic kidney disease; Z99.2 Dependence on renal dialysis; Z79.899 Other long term (current) drug therapy; Z79.84 Long term (current) use of oral hypoglycemic drugs; Z82.49 Family history of ischemic heart disease and other diseases of the circulatory system; Z95.828 Presence of other vascular implants and grafts
CPT/HCPCS: 36415; 71045; 80053; 80061; 80074; 81001; 82140; 82962; 83880; 84484; 85025; 87040; 87086; 87116; 93005; 93010; 93306; 96374; G0378; J0692; J3370; J7030; J7040